=== PATIENT | male | born 1950 | race Caucasian/White ===

== ENCOUNTER → 2017-07-05 08:47 | Outpatient (CLI) | payer OTHER, SELFPAY ==
--- NOTE | 2017-07-05 08:59 | RDU_ITS ---
Reason For Study: HYPERTENSION Right Renal Artery Left Renal Artery Right renal artery ostium Left renal artery ostium 154.0/38.3 148.0/33.7 RSV/EDV. PSV/EDV. Right renal artery proximal Left renal artery proximal PSV/EDV 150.0/34.7 PSV/EDV. 135.0/26.6 . Right renal artery mid 150.0/35.5 Left renal artery mid 162.0/36.5 PSV/EDV. PSV/EDV . Right renal artery distal Left renal artery distal 132.0/31.0 126.0/45.2 PSV/EDV. PSV/EDV. Right Renal Parenchyma Left Renal Parenchyma Upper Pole Medula 25.4/7.3 PSV/EDV. Left upper pole medulla 40.9/12.5 Right upper pole medulla EDR .29 . PSV/EDV . Right upper pole medulla R.I. .71 . Left upper pole medulla EDR .31 . Upper Mike Cortx 41.6/11.3 PSV/EDV. Left upper pole medulla R.I. .69 . Right upper pole cortex EDR .27 . UP Cortex 22.6/7.0 PSV/EDV. Right upper pole cortex R.I. .73 . Left upper pole cortex EDR .31 . Right lower Pole medulla 25.7/7.3 Left upper pole cortex R.I. .69 . PSV/EDV . Left lower Pole medulla 36.7/13.1 Right lower pole medulla EDR .28 . PSV/EDV . Right lower pole medulla R.I. .71 . Left lower pole medulla EDR .36 . Lower Pole Cortex 30.3/8.9 PSV/EDV. Left lower pole medulla R.I. .64 . Right lower pole cortex EDR .29 . Lower Pole Cortx 28.1/8.3 PSV/EDV. Right lower pole cortex R.I. .71 . Left lower pole cortex EDR .30 . Right Renal Hilar Left lower pole cortex R.I. .71 . Right Hilar avg 57.1/16.8 PSV/EDV. Left Renal Hilar Right hilar acceleration time 51 LT Hilar avg 53.2/13.1 PSV/EDV . m/sec. Left hilar acceleration time 59 Right Renal Dimensions m/sec. Right kidney size 10.1 cm . Left Renal Dimensions Right cortical dimension 1.5 cm . Left kidney size 10.8 cm . Left cortical dimension 1.6 cm . Aorta Proximal abdominal aorta 1.6 X 1.6 cm . Distal abdominal aorta 1.5 X 1.5 cm . Proximal abdominal aorta peak systolic velocity is 176.0 cm/sec . Distal abdominal aorta peak systolic velocity is 174.0 cm/sec . Interpretation Summary Dimensions of the intra-abdominal aorta appear normal, without evidence of aneurysmal dilatation. Renal artery velocities are bilaterally normal. Acceleration times are normal bilaterally. There is no evidence of hemodynamically significant renal artery stenosis on either side. The right cortical dimension is normal. The left cortical dimension is increased. Kidneys appear normal in size bilaterally. Ordering Physician: Annabel Adan Performed By: Cait Mckinney RVT
--- NOTE | 2017-07-05 09:00 | ECHOCS_ITS ---
Reason For Study: Dizziness Procedure This was a 2D Doppler, Color Flow transthoracic echocardiogram. The study was technically difficult. Exam performed in department. Left Ventricle Normal size and thickness. The estimated ejection fraction is 65 %. Normal diastology for age. No regional wall motion abnormalities noted. Right Ventricle Normal size and thickness. Normal systolic function. Atria Normal left atrium. Normal right atrium. Normal atrial septum. Mitral Valve The mitral valve is structurally normal. No prolapse or stenosis seen. Tricuspid Valve Normal tricuspid valve. Trivial tricuspid valve insufficiency. Right ventricular systolic pressure estimated to be 33 mmHg. Aortic Valve Trisinus/trileaflet aortic valve. Pulmonic Valve Normal pulmonic valve. Great Vessels Normal aortic root. Normal arch. Normal inferior vena cava. Inferior vena cava collapse with sniff. Pericardium/Pleural No pericardial effusion. Medication Definity0.6ml given slow IV push to enhance endocardial definition. MMode/2D Measurements & Calculations LVIDd: 4.4 cm IVSd: 0.95 cm Ao root diam: 3.2 cm LVIDs: 3.0 cm LVPWd: 0.78 cm LA dimension: 4.5 cm RVDd: 4.1 cm FS: 31.0 % LAV(MOD-bp): 57.9 ml LA A4 area: 17.5 cm2 RA A4 area: 15.2 cm2 LAV(MOD-bp) Indexed: 26.4 ml/m2 LAV(MOD-sp2): 80.3 ml LAV(MOD-sp4): 41.4 ml Doppler Measurements & Calculations MV E max antonio: 78.1 cm/sec Lat Peak E' Antonio: 8.8 cm/sec Med Peak E' Antonio: 8.8 cm/sec MV A max antonio: 89.7 cm/sec E/E' lat: 8.8 E/E' med: 8.9 MV E/A: 0.87 Ao V2 max: 137.2 cm/sec LV V1 max: 126.8 cm/sec PA V2 max: 104.7 cm/sec Ao max P.5 mmHg LV V1 max P.4 mmHg Ao V2 mean: 90.5 cm/sec Ao mean P.7 mmHg Ao V2 VTI: 30.5 cm TR max antonio: 263.6 cm/sec TR max P.8 mmHg Interpretation Summary The estimated ejection fraction is 65 %. Normal diastology for age. Trivial tricuspid valve insufficiency. Right ventricular systolic pressure estimated to be 33 mmHg. There is no comparison study available. The study was technically difficult. Contrast injection was performed. Ordering Physician: Annabel Adan Referring Physician: Annabel Adan Performed By: Lois Valencia, BRYANT, RVT
== END ==
PROVIDERS: Family Provider Internal Medicine; PCP Internal Medicine; Visit Provider Internal Medicine
DX: R42 Dizziness and giddiness (principal); I10 Essential (primary) hypertension
CPT/HCPCS: 93306; 93975; Q9957; A4216; C8929

== ENCOUNTER → 2017-09-15 11:46 | Outpatient (CLI) | payer OTHER, SELFPAY ==
--- NOTE | 2017-09-15 11:51 | RAD_ITS ---
STUDY: X-RAY - RIGHT KNEE REASON FOR EXAM: Male, 67 years old. Knee pain. TECHNIQUE: 4 view(s) of the knee. COMPARISON: None. FINDINGS: Normal visualized distal femur. Normal visualized proximal tibia and fibula. Normal proximal tibiofibular articulation. There is severe degenerative arthrosis of the medial femorotibial compartment with severe joint space narrowing. There is severe degenerative arthrosis of the lateral femorotibial compartment with severe joint space narrowing. There is severe degenerative arthrosis of the patellofemoral articulation. There are atherosclerotic calcifications. RAD/Knee 4 or More Views IMPRESSION: Degenerative arthrosis. Electronically Signed: Oziel Murray MD at 12:14 EDT Tel [phone], Service support ,
== END ==
PROVIDERS: Family Provider Internal Medicine; PCP Internal Medicine; Visit Provider Internal Medicine
DX: M25.561 Pain in right knee (principal)
CPT/HCPCS: 73564

== ENCOUNTER 2017-11-06 20:56 | Emergency (ER) | payer OTHER, SELFPAY ==
[2017-11-06 20:57] VITALS: BP 128/72; PULSE 80; RESP 16; TEMP 36.9; O2SAT 97; BMI 31.5
[2017-11-06 22:42] LABS: Bacteria 0 SEEN /hpf (None Seen); Mucous, Urine 0 SEEN /hpf (<or=2+); Squamous Epithelial Cells - UA 0 SEEN /hpf (0-5)
--- NOTE | 2017-11-06 22:42 | ED.RN ---
ATTEMPTED TO PLACE IV IN LEFT AC WITHOUT SUCCESS. DR. RASMUSSEN AWARE AND STATES IT IS OKAY FOR PT NOT TO HAVE IV AT THIS TIME.
[2017-11-06 22:51] LABS: Absolute Lymphocyte Count 2.18 X10^3/ul (0.83-4.51); Absolute Neutrophil Count 7.8 X10^3/uL (2.0-7.7); Basophil# 0.02 X10^3/uL; Basophil% 0.2 % (0-1); Eosinophil# 0.08 X10^3/uL; Eosinophils% 0.7 % (0-5); Hematocrit 40.2 % (40-54); Lymphocyte # 2.18 X10^3/ul (4.0); Lymphocyte % 19.4 % (19-41); Mean Corp Hgb Conc 32.3 g/gl (32-36); Mean Corpuscular Hgb 32.1 pg (27.0-32.0); Mean Corpuscular Volume 99.3 fL (80-94); Mean Platelet Vol. 9.2 fl (6.2-12.0); Monocyte# 1.19 X10^3/uL; Monocyte% 10.6 % (0-10); Neutrophil # 7.75 X10^3/uL (2.7-7.7); Neutrophil % 68.8 % (47-70); POSITIVE COUNT NO; POSITIVE DIFFERENTIAL NO; POSITIVE MORPHOLOGY NO; Platelet Count 289 K/mm3 (150-450); RBC Distribution Width CV 12.5 % (11.6-14.6); RBC Distribution Width SD 45.4 fl (35.1-43.9); Red Blood Count 4.05 M/mm3 (4.6-6.2); White Blood Count 11.3 K/mm3 (4.4-11.0)
[2017-11-06 22:52] LABS: Color, Urine Yellow (Yellow); Glucose, Dipstick Normal (Normal); Ketone-Dipstick 5 mg/dl (Negative); Leukocyte Esterase-Dipstick 500 /ul (Negative); Nitrite-Dipstick Negative (Negative); Occult Blood-Urine 250 /ul (Negative); Protein-Dipstick 30 mg/dl (Negative); Specific Gravity, Urine 1.025 (1.002-1.030); Urine Bilirubin Dipstick Negative (Negative); Urine Clarity Cloudy (Clear); Urine Urobilinogen 1 mg/dl (Normal)
[2017-11-06 23:00] VITALS: RESP 16
[2017-11-06 23:05] LABS: Anion Gap 8 (5-15); BUN 18 mg/dL (7-18); BUN/Creat Ratio 17.3 RATIO (10-20); Chloride 106 mmol/L (98-107); Creatinine, Serum 1.04 mg/dL (0.70-1.30); EST Glomerular Filtration Rate 76 mL/min (>60); Est Glom Filt Rate - Afr Amer 92 mL/min (>60); Estimated Creatinine Clearance 73.12 ml/min; Glucose 112 mg/dL (74-106); Potassium 4.3 mmol/L (3.5-5.1); Sodium Level 140 mmol/L (136-145)
[2017-11-06 23:07] LABS: Amorphous Sediment 2+; Calcium Oxalate Crystals Ur RARE /hpf (<or=2+); Red Blood Cells-Urine 25-50 SEEN /hpf (0-5); White Blood Cells 10-25 SEEN /hpf (0-5)
--- NOTE | 2017-11-06 23:44 | ED.VISSUMM ---
- ER Visit Summary Date of Service: 11/06/17 Chief Complaint: Not passing kidney stones History of Present Illness: The patient is a 67 M who had lithotripsy for 2 stones in his right kidney on November 01. He states the stones were approximately 8 mm in size. Surgery was performed at [facility], [place]. Patient states he did well until the when he had developed increased pain. He has been taking his oxycodone since that time. He is now complaining of constipation as well. Patient states he has not passed any kidney stones. Last 2 or 3 times he is urinated it has been dark in color. Physical Examination: Vital signs are unremarkable. Patient sitting upright in bed no acute distress. Heart is regular rate and rhythm. Lung sounds are clear. Abdomen is soft with no focal tenderness. Hypoactive bowel sounds are noted. Test Results: CBC was a white count 11.3 with normal differential. Chemistry studies normal. Urinalysis shows 10-25 white cells, 25-50 RBCs. No bacteria is noted. Small amount of calcium oxalate crystals are noted. CT flank reveals mild right perinephric and periureteral stranding. Mild right hydronephrosis is noted. There is a 6 mm stone in the distal right ureter. There is also a 6 mm stone in the bladder. Many small tiny stones are seen in the region of the right UVJ. Emergency Department Course and Treatment: Patient did take his home dose of Percocet while here. Test results were discussed with him and at bedside. Patient will be given Toradol to help with ureteral spasm and pain. To address his constipation he will be treated with GoLYTELY. He is to follow-up with his urologist at [facility] [place]. Treatment Plan: [] Disposition: Discharge Impression: 1. Right-sided ureterolithiasis 2. Constipation This note was generated with [employer] dictation software. It may contain incorrect words, spelling, and punctuation that were not noted in review of the chart prior to signing ED Disposition - Plan for ED Patient: Disposition: Home or Assisted Living Chief Complaint: Complaint Instructions: ED Stone Renal W Colic Prescriptions: Ketorolac [Toradol] 10 mg PO Q6H PRN #14 tablet PRN Reason: Pain Referrals: Fast,Annabel, DO [Primary Care Provider] - Additional Instructions: Take GoLytely after completing your sleep study tomorrow. Follow-up with your urologist within 5-7 days.
--- NOTE | 2017-11-06 23:48 | ED.DEP ---
ED Disposition - Plan for ED Patient: Disposition: Home or Assisted Living Chief Complaint: Complaint Instructions: ED Stone Renal W Colic Prescriptions: Ketorolac [Toradol] 10 mg PO Q6H PRN #14 tablet PRN Reason: Pain Referrals: Loco,DO Annabel [Primary Care Provider] - Additional Instructions: Take GoLytely after completing your sleep study tomorrow. Follow-up with your urologist within 5-7 days.
[2017-11-07] MEDS: Ketorolac 10 MG Tablet PO ×2 (00:05→00:06)
[2017-11-07] MEDS: Electrolyte Solution/Peg's 4000 ML PO (00:06)
[2017-11-07 00:07] VITALS: BP 147/92; PULSE 85; RESP 16; O2SAT 98
--- NOTE | 2017-11-07 00:14 | ED.RN ---
REVIEWED D/C INSTRUCTIONS, FOLLOW UP CARE, PRESCRIPTION, AND S/S THAT WOULD WARRANT A RETURN TO THE ED WITH PT. PT VERBALIZED AN UNDERSTANDING AND DENIES FURTHER QUESTIONS FOR THIS RN. PT SKIN P/W/D, RESP EVEN AND UNLABORED, PT A&O X 3, NO DISTRESS NOTED. PT AMBULATED OUT OF ED, GAIT STEADY.
== END 2017-11-07 00:15 | disposition home or self-care (01) ==
PROVIDERS: Emergency Provider Emergency Medicine; Family Provider Internal Medicine; PCP Internal Medicine
DX: N13.2 Hydronephrosis with renal and ureteral calculous obstruction (principal); K59.00 Constipation, unspecified; I10 Essential (primary) hypertension; E78.00 Pure hypercholesterolemia, unspecified; F41.9 Anxiety disorder, unspecified; F32.9 Major depressive disorder, single episode, unspecified; Z87.442 Personal history of urinary calculi; Z98.1 Arthrodesis status; Z79.82 Long term (current) use of aspirin; Z79.899 Other long term (current) drug therapy; Z87.891 Personal history of nicotine dependence
CPT/HCPCS: 74176; 80048; 81001; 85025; 99283; A4216

== ENCOUNTER → 2017-11-22 10:05 | Outpatient (CLI) | payer OTHER, SELFPAY ==
--- NOTE | 2017-11-22 13:08 | NEURO ---
NCS and/or EMG Patient Report Ordering Doctor: Annabel Adan DATE OF SERVICE: 11/22/17 Kamar Chu is a 67-year-old male presents for electrodiagnostic testing of the right lower limb. He reports weakness, muscle cramping and pain from the knee to the foot. He does have a history of lumbar fusion. He does report intermittent symptoms in the left leg. Electrodiagnostic findings: Right common peroneal nerve demonstrates normal distal latency with reduced amplitude and normal conduction velocity. Normal right tibial motor response. Sensory responses are within normal limits. Needle EMG testing shows no evidence of denervation with normal motor unit action potentials. Electrodiagnostic impression: This is an abnormal study in the right lower limb. 1. 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 2. Would consider correlation with the left lower limb to evaluate for polyneuropathy. Additionally, Mr. Chu may also benefit from a tissue biopsy to evaluate for small fiber neuropathy. If there are any further questions, please, do not hesitate to contact me
== END ==
PROVIDERS: Family Provider Internal Medicine; PCP Internal Medicine; Visit Provider Internal Medicine
DX: R29.898 Other symptoms and signs involving the musculoskeletal system (principal)
CPT/HCPCS: 95886; 95910

== ENCOUNTER → 2018-03-05 10:08 | Outpatient (CLI) | payer OTHER, SELFPAY ==
--- NOTE | 2018-03-05 10:12 | MRI_ITS ---
STUDY: MRI BRAIN WITH AND WITHOUT CONTRAST (ATTENTION INTERNAL AUDITORY CANALS - I.A.C.'s) REASON FOR EXAM: Male, 67 years old. TINNITUS RIGHT EAR -- dizzy, rt hearing loss, no pain. TECHNIQUE: Standardized multiplanar fat and water weighted pulse sequences were obtained. 7 ml of Gadavist contrast material was administered intravenously for the contrast portion of the examination. COMPARISON: None. FINDINGS: Normal bilateral temporal bones. Normal bilateral internal auditory canals. There is no demonstrated intracanalicular or cisternal vestibular schwannoma (acoustic neuroma). There is no enhancement of the bilateral VIIth or VIIIth cranial nerves. Normal bilateral cochlea, vestibules and semicircular canals. There is mild cerebral atrophy with widening of the extra-axial spaces and ventricular dilatation. There are a limited number of small white matter hyperintensities, distributed throughout the deep white matter tracts of the cerebral hemispheres, consistent with mild chronic white matter ischemic changes. Normal bilateral basal ganglia. Normal thalami. Normal flow voids within the major intracranial circulation suggesting patency by spin echo criteria. Normal venous enhancement. There is no enhancing intra-axial or extra-axial abnormality. There is no extra-axial fluid accumulation. Normal sella turcica, pituitary gland, infundibular stalk, optic chiasm and hypothalamus. Normal tectal plate and pineal gland. Normal midbrain, juan a and medulla. Normal cerebellum. Normal basal cisterns. No demonstrated orbital abnormality, within the constraints of a routine brain study. Normal visualized paranasal sinuses. Normal calvarium and skull base. Normal visualized soft tissue structures. Normal visualized upper cervical spine. MRI/Brain W/WO Contrast IMPRESSION: There is no demonstrated intracanalicular or cisternal vestibular schwannoma (acoustic neuroma). Mild chronic microvascular ischemic changes. Electronically Signed: Ruddy Everett MD at 9:18 EST Tel , Service support ,
[2018-03-05 12:06] LABS: CREATININE FINGERSTICK 0.7 mg/dL (0.70-1.30); EGFR FINGERSTICK > 60.0000 mL/min (>60)
== END ==
PROVIDERS: Family Provider Internal Medicine; PCP Internal Medicine; Referring Provider Otolaryngology; Visit Provider Otolaryngology
DX: H93.11 Tinnitus, right ear (principal)
CPT/HCPCS: 70553; A9585

== ENCOUNTER 2018-04-23 05:46 | Inpatient (IN) | payer OTHER, MEDICARE, SELFPAY ==
[2018-04-10 15:39] VITALS: BP 141/80; PULSE 61; RESP 16; TEMP 36.8; O2SAT 99; BMI 32.8
--- NOTE | 2018-04-10 16:19 | SDCEKG_ITS ---
Test Reason : Blood Pressure : / mmHG Vent. Rate : 057 BPM Atrial Rate : 057 BPM P-R Int : 186 ms QRS Dur : 100 ms QT Int : 428 ms P-R-T Axes : 051 067 050 degrees QTc Int : 416 ms Sinus bradycardia Otherwise normal ECG Confirmed by CHARITY GATICA, NESTOR ([id number]), film editor supervisor DARRYN GALLARDO ([id number]) on 04/13/2018 3:30:47 PM Referred By: Saleem Rider Confirmed By:NESTOR NAHS MD
[2018-04-10 16:59] LABS: Absolute Lymphocyte Count 1.98 X10^3/ul (0.83-4.51); Basophil# 0.01 X10^3/uL; Basophil% 0.2 % (0-1); Eosinophil# 0.17 X10^3/uL; Hematocrit 39.6 % (40-54); Hemoglobin 12.9 g/dl (13.0-16.5); Lymphocyte # 1.98 X10^3/ul (4.0); Mean Corp Hgb Conc 32.6 g/gl (32-36); Mean Corpuscular Hgb 31.6 pg (27.0-32.0); Mean Corpuscular Volume 97.1 fL (80-94); Mean Platelet Vol. 9.1 fl (6.2-12.0); Monocyte# 0.46 X10^3/uL; Monocyte% 8.1 % (0-10); Neutrophil # 3.02 X10^3/uL (2.7-7.7); Neutrophil % 53.5 % (47-70); POSITIVE COUNT NO; POSITIVE DIFFERENTIAL NO; POSITIVE MORPHOLOGY NO; Platelet Count 267 K/mm3 (150-450); RBC Distribution Width CV 12.1 % (11.6-14.6); RBC Distribution Width SD 42.8 fl (35.1-43.9); Red Blood Count 4.08 M/mm3 (4.6-6.2); White Blood Count 5.7 K/mm3 (4.4-11.0)
[2018-04-10 17:27] LABS: ALB/GLOB Ratio 1.1 RATIO (0.9-2.4); AST(SGOT) 17 U/L (15-37); Alanine Aminotransfer ALT/SGPT 27 U/L (16-61); Alkaline Phosphatase 90 U/L (45-117); Anion Gap 6 (5-15); BUN 21 mg/dL (7-18); BUN/Creat Ratio 25.5 RATIO (10-20); Calcium,Total 8.9 mg/dL (8.5-10.1); Chloride 106 mmol/L (98-107); Creatinine, Serum 0.82 mg/dL (0.70-1.30); EST Glomerular Filtration Rate 99 mL/min (>60); Est Glom Filt Rate - Afr Amer 120 mL/min (>60); Estimated Creatinine Clearance 89.81 ml/min; Globulin 3.8 g/dL (2.2-4.2); Glucose 83 mg/dL (74-106); Potassium 4.1 mmol/L (3.5-5.1); Protein, Total 7.8 g/dL (6.4-8.2); Sodium Level 138 mmol/L (136-145)
[2018-04-23] VITALS (11 sets, daily range): BP systolic 108–152; BP diastolic 60–77; PULSE 58–90; RESP 16–18; TEMP 36.1–36.8; O2SAT 94–100; BMI 32.8
--- NOTE | 2018-04-23 | HIP_PTH ---
PATIENT: LEWIS VEGA LOC: MS3 U#:[id number] AGE/SX: 67/M ROOM: MS308 RE04/23/[address]: Dr. Saleem Rider DO : 1950 BED: 1 DIS: 04/24/2018 SPEC #: [id number] RECD: 04/23/18 13:36 STATUS: PATRIC REQ #: [id number] MODESTA: 04/23/18 00:[address]: Saleem Rider DEPT: SURGICAL PATHOLOGY RECD BY: Luis Walden ENTERED: 04/23/18 13:37 SP TYPE: TOTAL HIP OTHR DR: Dr. Annabel Adan DO Tissues: Hip, NOS Procedures: Decalcification bone/plaque Surgery Specimen Level IV HEADER OPERATION: Total hip replacement PRE-OP DIAGNOSIS: Severe endstage tricompartment osteoarthritis left hip TISSUE SUBMITTED: Bone and soft tissue MICROSCOPIC DIAGNOSIS Bone and tissue, left hip, total hip replacement/resection: Femoral head with degenerative osteoarthritic changes. Fragments of fibroadipose tissue, fibroconnective tissue and synovial tissue. RORO:petty 04/26/18 MICROSCOPIC DESCRIPTION Slides are reviewed. GROSS DESCRIPTION Received is one container labeled with the patient's name and designated bone and soft tissue hip, left. The specimen consists of a lara femoral head. The femoral head measures 7 x 5.5 x 5.5 cm. The articular surface displays prominent osteophyte formation, eburnation and bone erosion. Also present in the specimen container are multiple irregular fragments of bone reamings and pink-yellow soft tissue measuring in aggregate 11 x 8 x 1 cm. Cnc Field Service Engineer sections are submitted in two cassettes as follows: 1 - soft tissue, 2 - bone after decalcification. / AM:petty 04/23/18 TC:5 [facility]: [id number]
[2018-04-23] MEDS: oxyCODONE HCl Cr 10 MG Tablet PO (06:24)
[2018-04-23] MEDS: Acetaminophen 500 MG Tablet 1000 MG PO ×3 (06:24→21:42)
[2018-04-23] MEDS: Cefazolin 2 GM in 0.9% Normal Saline 100 ML IV (07:26)
--- NOTE | 2018-04-23 09:38 | PCM.OPRPT ---
Report of Operation Date of Procedure: 04/23/18 Pre-Operative Diagnosis: OA left hip Post-Operative Diagnosis: same Surgery/Procedure Performed:: Left THR Description of Surgical Findings:: see op note house calls nurse practitioner: Akshat Mabry Type of Anesthesia:: Spinal Anesthesiologist: Osiel Santos Specimen's removed: bone Estimated Blood Loss (mL): 100c - Admit VTE Documentation VTE Present on Admission: No VTE Mechan Device Prophylaxis: SCD's, Thigh High RAEGAN Hose VTE Pharm Prophylaxis ordered?: Yes
--- NOTE | 2018-04-23 09:53 | RAD_ITS ---
STUDY: X-RAY - LEFT HIP REASON FOR EXAM: Male, 67 years old. Total left hip replacement. TECHNIQUE: 2 views of the hip. COMPARISON: None. FINDINGS: Postoperative soft tissue changes. The patient is status post left total hip replacement. There is good alignment. RAD/Hip Min 2 Views (Portable) IMPRESSION: Status post left total hip replacement. There is good alignment. Postoperative soft tissue changes. Electronically Signed: Oziel Murray MD at 13:01 EST , Service support ,
[2018-04-23 10:01] LABS: Hematocrit 36.2 % (40-54); Hemoglobin 11.7 g/dl (13.0-16.5); Mean Corp Hgb Conc 32.3 g/gl (32-36); Mean Corpuscular Hgb 32.3 pg (27.0-32.0); Mean Platelet Vol. 9.2 fl (6.2-12.0); Platelet Count 245 K/mm3 (150-450); Red Blood Count 3.62 M/mm3 (4.6-6.2); White Blood Count 5.8 K/mm3 (4.4-11.0)
[2018-04-23 10:02] LABS: Scan Indicated on CBC? Y/N NO
[2018-04-23 10:10] LABS: Anion Gap 10 (5-15); BUN 23 mg/dL (7-18); BUN/Creat Ratio 23.8 RATIO (10-20); Calcium,Total 8.4 mg/dL (8.5-10.1); Chloride 108 mmol/L (98-107); Creatinine, Serum 0.97 mg/dL (0.70-1.30); EST Glomerular Filtration Rate 83 mL/min (>60); Est Glom Filt Rate - Afr Amer 100 mL/min (>60); Estimated Creatinine Clearance 75.92 ml/min; Glucose 154 mg/dL (74-106); Potassium 3.6 mmol/L (3.5-5.1); Sodium Level 143 mmol/L (136-145)
--- NOTE | 2018-04-23 10:53 | PCM.OPRPT ---
Report of Operation Date of Procedure: 04/23/18 Pre-Operative Diagnosis: OA left hip Post-Operative Diagnosis: same Surgery/Procedure Performed:: Left THR Description of Surgical Findings:: see op note surveillance manager: Akshat Mabry Type of Anesthesia:: Spinal Anesthesiologist: Osiel Santos Specimen's removed: bone Estimated Blood Loss (mL): 100c Description of Procedure: Primary Surgeon/Physician: Saleem Rider surveillance manager: Akshat Mabry PA-C surveillance manager: Pre-Operative Diagnosis: OA left hip Post-Operative Diagnosis: same Surgery/Procedure Performed: Left THR Estimated Blood Loss: 100cc Specimen's Removed: bone Type of Anesthesia: spinal ASA Class: ASA3 Severe Disease Implants: [Wili Accolade 132 degree size 6 pressfit stem, size 58mm Trident tritanium cup, MDM metal liner, +4 femoral neck ] Surgical Indications: Patient has severe end-stage osteoarthritic changes in the [left ] hip. They have failed conservative measures including activity modification, anti-inflammatories, use of assistive devices. This to the point where the pain affects their ability to enjoy life and complete activities of daily living without discomfort. Patient has elected to undergo the above procedure Procedure Description: The patient was greeted in the preoperative area the [left ] hip was marked with surgical marker preoperative antibiotics administered. The patient was then taken to or suite in stable condition. Preoperative tranexamic acid was also utilized. Once the patient was placed in the supine position on the operating room table and once adequate anesthesia was obtained they were then placed in the lateral decubitus position with the surgical hip facing the field. All bony prominences were well-padded. A commercial hip position was utilized. The appropriate extremity was then prepped and draped in usual sterile fashion. Ioban was placed on the skin. Surgical timeout was performed and surgery was commenced. A standard posterior approach to the hip was then performed. Incision was planned and carried out with a #10 blade scalpel. Dissection was then carried length of the incision to the IT band which was split proximally and distally. A Charnley retractor was then placed for soft tissue retraction exposing the piriformis. A standard posterior capsulotomy was performed. Severe eburnation of bone was noted and periarticular osteophytes were identified consistent with severe end-stage osteoarthritis. A femoral neck osteotomy guide was used to milton the proximal femur. A femoral osteotomy was then created approximately 1 fingerbreadth above the lesser trochanter. This was measured and placed on the back table. Once this was complete acetabular retractors were placed anteriorly and posteriorly. Labrum was then removed from the acetabulum exposing the entire cup of the acetabulum. Sequential reaming was then commenced and the acetabulum was medialized and sequentially widened in order to accommodate appropriate size cup. The acetabular cup was then impacted into position to the appropriate depth referencing approximately 30? anteversion and 45? of inclination. Excellent purchase was obtained. [2] appropriate sized cancellous screws were placed in the cup. An appropriate size MDM liner was then placed. Attention was then turned to the femoral preparation. The hip was placed in the 90/90 position and a lateralizing box osteotome was utilized. Femoral starting awl was used followed by sequential broaching to the appropriate size. Excellent purchase was obtained with the stem no stem subsidence and excellent rotational stability was confirmed. A calcar reamer was then used in the trial head neck was placed on the broach. The hip was then located and taken through full range of motion flexion internal and external rotation as well as extension. Excellent stability was noted no impingement was identified of the components and leg lengths appear to be appropriate. The hip was at this point dislocated and the trial femoral components were removed. The final femoral stem was then implanted and impacted to the appropriate depth. Again excellent purchase was obtained no stem subsidence or rotational instability was noted. The hip was once again trialed and confirmation of leg length and stability was performed. Soft tissue tension also appeared to be appropriate. At this point the hip was redislocated and the trunnion was cleaned and dried meticulously in the appropriate size MDM femoral head was placed on the clean dry trunnion using a 12/14 Atkinson taper. The hip was once again relocated and again taken through full range of motion. I did inject a cocktail of postoperative pain medication in the deep and superficial tissues. Copious irrigation was performed. Anatomic closure of the piriformis tendon was performed through drill holes in the greater trochanter. A #1 Vicryl 0 Vicryl was utilized in subcutaneous tissue and surgical qasim were placed in the skin. A well-padded nonadherent dressing was applied. Patient was taken to PACU in stable condition. No complications were identified. Will follow standard postop protocol for total hip arthroplasty. My assistant strength coach played a vital role in the procedure beginning with positioning, holding retraction of soft tissues, positioning the leg to optimize visualization during the procedure and assisting with wound closure.
--- NOTE | 2018-04-23 10:57 | OP.PCM_ITS ---
Report of Operation Date of Procedure: 04/23/18 Pre-Operative Diagnosis: OA left hip Post-Operative Diagnosis: same Surgery/Procedure Performed:: Left THR Description of Surgical Findings:: see op note web marketing strategist: Akshat Mabry Type of Anesthesia:: Spinal Anesthesiologist: Osiel Santos Specimen's removed: bone Estimated Blood Loss (mL): 100c Description of Procedure: Primary Surgeon/Physician: Saleem Rider web marketing strategist: Akshat Mabry PA-C web marketing strategist: Pre-Operative Diagnosis: OA left hip Post-Operative Diagnosis: same Surgery/Procedure Performed: Left THR Estimated Blood Loss: 100cc Specimen's Removed: bone Type of Anesthesia: spinal ASA Class: ASA3 Severe Disease Implants: [Wili Accolade 132 degree size 6 pressfit stem, size 58mm Trident tritanium cup, MDM metal liner, +4 femoral neck ] Surgical Indications: Patient has severe end-stage osteoarthritic changes in the [left ] hip. They have failed conservative measures including activity mod ification, anti-inflammatories, use of assistive devices. This to the point where the pain affects their ability to enjoy life and complete activities of daily living without discomfort. Patient has elected to undergo the above procedure Procedure Description: The patient was greeted in the preoperative area the [left ] hip was marked with surgical marker preoperative antibiotics administered. The patient was then taken to or suite in stable condition. Preoperative tranexamic acid was also utilized. Once the patient was placed in the supine position on the operating room table and once adequate anesthesia was obtained they were then placed in the lateral decubitus position with the surgical hip facing the field. All bony prominences were well-padded. A comm ercial hip position was utilized. The appropriate extremity was then prepped and draped in usual sterile fashion. Ioban was placed on the skin. Surgical timeout was performed and surgery was commenced. A standard posterior approach to the hip was then performed. Incision was planned and carried out with a #10 blade scalpel. Dissection was then carried length of the incision to the IT band which was split proximally and distally. A Charnley retractor was then placed for soft tissue retraction exposing the piriformis. A standard posterior capsulotomy was performed. Severe eburnation of bone was noted and periarticular osteophytes were identified consistent with severe end-stage osteoarthritis. A femoral neck osteotomy guide was used to milton the proximal femur. A femoral osteotomy was then created approximately 1 fingerbreadth above the lesser trochanter. This was measured and placed on the back table. Once this was complete acetabular retractors were placed anteriorly and posteriorly. Labrum was then removed from the acetabulum exposing the entire cup of the acetabulum. Sequential reaming was then commenced and the acetabulum was medialized and sequentially widened in order to accommodate appropriate size cup. The acetabular cup was then impacted into position to the appropriate depth referencing approximately 30? anteversion and 45? of inclination. Excellent purchase was obtained. [2] appropriate sized cancellous screws were placed in the cup. An appropriate size MDM liner was then placed. Attention was then turned to the femoral preparation. The hip was placed in the 90/90 position and a lateralizing box osteotome was utilized. Femoral starting awl was used followed by sequential broaching to the appropriate size. Excellent purchase was obtained with the stem no stem subsidence and excellent rotational stability was confirmed. A calcar reamer was then used in the trial head neck was placed on the broach. The hip was then located and taken through full range of motion flexion internal and external rotation as well as extension. Excellent stability was noted no impingement was identified of the components and leg lengths appear to be appropriate. The hip was at this point dislocated and the trial femoral components were removed. The final femoral stem was then implanted and impacted to the appropriate depth. Again excellent purchase was obtained no stem subsidence or rotational instability was noted. The hip was once again trialed and confirmation of leg length and stability was performed. Soft tissue tension also appeared to be appropriate. At this point the hip was redislocated and the trunnion was cleaned and dried meticulously in the appropriate size MDM femoral head was placed on the clean dry trunnion using a 12/14 Atkinson taper. The hip was once again relocated and again taken through full range of motion. I did inject a cocktail of postoperative pain medication in the deep and superficial tissues. Copious irrigation was performed. Anatomic closure of the piriformis tendon was performed through drill holes in the greater trochanter. A #1 Vicryl 0 Vicryl was utilized in subcutaneous tissue and surgical qasim were placed in the skin. A well-padded nonadherent dressing was applied. Patient was taken to PACU in stable condition. No complications were identified. Will follow standard postop protocol for total hip arthroplasty. My financial services assistant played a vital role in the procedure beginning with positioning, holding retraction of soft tissues, positioning the leg to optimize visualization during the procedure and assisting with wound closure.
[2018-04-23] MEDS: Sertraline 50 MG Tablet PO ×2 (14:09→21:42)
[2018-04-23] MEDS: Lactated Ringers 1,000 ML 125 ML IV ×2 (14:09→22:36)
[2018-04-23] MEDS: Cefazolin 1 GM/50 ML BAG IV ×2 (15:08→22:35)
[2018-04-23] MEDS: Aspirin 325 MG Tablet PO (16:28)
[2018-04-23] MEDS: Tamsulosin HCl 0.4 MG Capsule PO (21:41)
[2018-04-23] MEDS: Metoprolol(XL)Succ 25 MG Tablet PO (21:41)
[2018-04-23] MEDS: Senna/Docusate Sodium 1 Tablet 2 TABLET PO (21:41)
[2018-04-23] MEDS: Atorvastatin Calcium 40 MG Tablet PO (21:42)
[2018-04-23] MEDS: Ketorolac 15 MG/ML Vial IV (22:36)
[2018-04-24 02:33] VITALS: BP 116/66; PULSE 58; RESP 16; TEMP 36.9; O2SAT 96
[2018-04-24] MEDS: Acetaminophen 500 MG Tablet 1000 MG PO ×2 (05:18→14:39)
[2018-04-24] MEDS: Sertraline 50 MG Tablet PO ×2 (05:20→14:39)
[2018-04-24 06:19] LABS: Hematocrit 35.3 % (40-54); Hemoglobin 11.2 g/dl (13.0-16.5); Mean Corp Hgb Conc 31.7 g/gl (32-36); Mean Corpuscular Hgb 32.4 pg (27.0-32.0); Mean Platelet Vol. 9.2 fl (6.2-12.0); Platelet Count 206 K/mm3 (150-450); RBC Distribution Width CV 12.5 % (11.6-14.6); RBC Distribution Width SD 45.9 fl (35.1-43.9); Red Blood Count 3.46 M/mm3 (4.6-6.2); Scan Indicated on CBC? Y/N NO; White Blood Count 7.7 K/mm3 (4.4-11.0)
[2018-04-24 06:40] LABS: Anion Gap 8 (5-15); BUN 16 mg/dL (7-18); BUN/Creat Ratio 19.3 RATIO (10-20); Calcium,Total 8.4 mg/dL (8.5-10.1); Chloride 107 mmol/L (98-107); Creatinine, Serum 0.83 mg/dL (0.70-1.30); EST Glomerular Filtration Rate 99 mL/min (>60); Est Glom Filt Rate - Afr Amer 119 mL/min (>60); Estimated Creatinine Clearance 88.73 ml/min; Glucose 107 mg/dL (74-106); Potassium 4.5 mmol/L (3.5-5.1); Sodium Level 140 mmol/L (136-145)
[2018-04-24] MEDS: Ketorolac 15 MG/ML Vial IV (07:01)
--- NOTE | 2018-04-24 07:42 | PCM.PN.ORT ---
Subjective: Patient sitting at bedside eating breakfast, at his side. Patient states he was sore this morning with ambulation. Denies chest pain, shortness breath, calf pain, nausea vomiting. Objective: Dressings clean dry intact. Negative signs and symptoms of DVT. Vital signs labs within normal limits. Patient in no respiratory distress. Patient is afebrile neurovascular is otherwise intact. - Physical Exam General: Alert, Oriented x3, Cooperative HEENT: PERRLA Neurological: Cranial nerves II-XII grossly intact Psych/Mental Status: Normal Affect, Alert and oriented to time, place, person, mood and affect Vital Signs Temp Pulse Resp BP Pulse Ox 98.5 F 58 L 16 116/66 96 04/24/18 02:33 04/24/18 02:33 04/24/18 02:33 04/24/18 02:33 04/24/18 02:33 Oxygen Flow Rate (L/min) 2 Oxygen Delivery Method CPAP Weight: 100.698 kg Body Mass Index (BMI) 32.8 Intake and Output for Last 24 Hours 04/22/18 04/23/18 04/24/18 23:59 23:59 23:59 Intake Total 2841 / 2841 1101 / 1101 Output Total 450 / 450 Balance 2391 / 2391 1101 / 1101 Laboratory Tests Past 24 Hrs 04/23/18 04/23/18 04/24/18 09:46 09:46 05:32 WBC 5.8 7.7 RBC 3.62 L 3.46 L Hgb 11.7 L 11.2 L Hct 36.2 L 35.3 L MCV 100.0 H 102.0 H MCH 32.3 H 32.4 H MCHC 32.3 31.7 L RDW 12.0 12.5 RDW Differential 43.0 45.9 H Plt Count 245 206 MPV 9.2 9.2 Sodium 143 Potassium 3.6 Chloride 108 H Carbon Dioxide 25.0 Anion Gap 10 BUN 23 H Creatinine 0.97 Estim Creat Clear Calc 75.92 Est GFR (MDRD) Af Amer 100 Est GFR (MDRD) Non-Af 83 BUN/Creatinine Ratio 23.8 H Glucose 154 H Calcium 8.4 L 04/24/18 05:32 WBC RBC Hgb Hct MCV MCH MCHC RDW RDW Differential Plt Count MPV Sodium 140 Potassium 4.5 Chloride 107 Carbon Dioxide 25.0 Anion Gap 8 BUN 16 Creatinine 0.83 Estim Creat Clear Calc 88.73 Est GFR (MDRD) Af Amer 119 Est GFR (MDRD) Non-Af 99 BUN/Creatinine Ratio 19.3 Glucose 107 H Calcium 8.4 L Medical Necessity - Tobacco Use Smoking Status: Former smoker Assessment/Plan Status post left total hip 1. Continue all pain medications as prescribed 2. Continue physical therapy weight-bear as tolerated with walker. 3. Aspirin 325 mg 1 p.o. every 12 hours times 30 days for postop DVT prophylaxis 4. Encourage incentive spirometry 5. continue outpatient therapy at [facility] [place] 6. Discharge home after today's p.m. therapy
--- NOTE | 2018-04-24 07:53 | DCINST_ITS ---
Discharge Diet: No Restrictions Discharge Activity: May Not Drive, May Shower, Use Walker May shower in (days): 3 - only if incision is dry and without drainage. Do NOT soak/submerge in tub/pool/valdez/stream/hot tub. May resume sexual activity in: No Restrictions Ice area for (Minutes): 20 - every hour while awake Weight Bearing Status: Weight bearing as tolerated Lifting Restrictions: 20 pounds Elevate: Operative Extremity Call your doctor if your incision/area has: Continuous Slow Oozing, Sudden Increased Bleeding, Increased Pain/ Swelling, Increased Redness, Foul Smelling Discharge Call your doctor if you observe: Fever of 101 or Higher, Inability to urinate, Inability to have a bowel movement, Shortness of breath, Fainting spells, Chest pain, Increased palpitations (irregular heartbeat), Calf discomfort, Uncontrolled pain Change Dressing in (Days):: 0 - Change daily and as needed. Remove Dressing in (days):: 8 Cleanse incision/area with: Soap & Water Allergies/Adverse Reactions: Allergies No Known Allergies Allergy (Verified 04/10/18 15:21) Medications to take at Discharge Atorvastatin Calcium [Lipitor] 40 mg PO DAILY 11/06/17 Cholecalciferol (VIT D3) [Vitamin D3] 3,000 unit PO DAILY 11/06/17 Ferrous Sulfate [Iron] 325 mg PO DAILY 11/06/17 Metoprolol(XL)Succ [Toprol Xl (Beta Lissett)] 25 mg PO BID 11/06/17 Multivitamin [Multiple Vitamins] 1 each PO DAILY 11/06/17 Sertraline HCl [Zoloft] 50 mg PO TID 11/06/17 Tamsulosin HCl [Flomax] 0.4 mg PO QHS 11/06/17 Vitamin B Complex 1 each PO DAILY 11/06/17 Amlodipine Besylate/Benazepril [Amlodipine-Benazepril 5-10 mg] 1 each PO DAILY 04/10/18 Acetaminophen [Tylenol] 1,000 mg PO Q8 #90 tab 04/24/18 Aspirin 325 mg PO BIDCM #60 tab 04/24/18 Oxycodone [Oxyir] 5 - 10 mg PO Q4H PRN PRN 7 Days #90 tab 04/24/18 The following prescriptions were given: Oxycodone [Oxyir] 5 - 10 mg PO Q4H PRN PRN 7 Days #90 tab PRN Reason: Mod-Severe Pain (4-12/20) Acetaminophen [Tylenol] 1,000 mg PO Q8 #90 tab Aspirin 325 mg PO BIDCM #60 tab Primary Care Physician: Annabel Adan DO [Primary Care Provider] - Test Results: Test results from this visit will be discussed in further detail at your follow- up appointment, if applicable. Please Follow Up With: Saleem Rider DO When: see pink sheet
[2018-04-24] MEDS: oxyCODONE 5 MG Tablet PO ×2 (08:14→12:06)
[2018-04-24] MEDS: Aspirin 325 MG Tablet PO (08:14)
[2018-04-24 08:16] VITALS: BP 120/57; PULSE 81; RESP 18; TEMP 36.7; O2SAT 97
[2018-04-24] MEDS: Lisinopril 10 MG Tablet PO (09:38)
[2018-04-24] MEDS: Senna/Docusate Sodium 1 Tablet 2 TABLET PO (09:39)
[2018-04-24] MEDS: amLODIPine 5 MG Tablet PO (09:39)
--- NOTE | 2018-04-24 09:40 | CASEMGMT ---
KOURTNEY MORENO Face to Face with patient for initial transition planning/care coordination assessment. RN TIFFANIE introduced self and role at [facility]. Patient lying in bed, alert and oriented, at bedside. Patient willing to participate in assessment and is able to answer all questions appropriately. Care providers, pharmacy, and demographics verified. Patient wishes to discharge home and is setup with [facility] for outpatient therapy with providing transportation. Patient has walker, raised toilet seat, BSC, and Cpap at home. Patient lives in 2 story home with bed and bath on 2nd floor. Patietn states he did the stair okay with therapy and feels fine with doing stairs at home with double railing. Per , if patient needs setup on 1 floor, it could be done. Patient states he has no further needs or concerns at this time. CM to follow for discharge planning needs that may arise. Disposition Plan: Patient to discharge home with outpatient therapy, family support, and follow-up plans in place. Fern CAMARILLO, RN, CM
[2018-04-24 09:46] VITALS: PULSE 64
[2018-04-24] MEDS: Metoprolol(XL)Succ 25 MG Tablet PO (09:46)
[2018-04-24 09:50] VITALS: PULSE 64
[2018-04-24 14:15] VITALS: BP 120/67; PULSE 79; RESP 18; TEMP 37.1; O2SAT 99
== END 2018-04-24 14:44 | disposition home or self-care (01) | DRG 470 ==
PROVIDERS: Admitting Provider Orthopaedic Surgery; Family Provider Internal Medicine; PCP Internal Medicine; Referring Provider Orthopaedic Surgery; Visit Provider Orthopaedic Surgery
PROC: 0SRB0JZ Replacement of Left Hip Joint with Synthetic Substitute, Open Approach (ICD-10-PCS; CPT 27130; principal; 2018-04-23 06:50)
DX: M16.12 Unilateral primary osteoarthritis, left hip (principal); I10 Essential (primary) hypertension; E78.00 Pure hypercholesterolemia, unspecified; Z87.891 Personal history of nicotine dependence
CPT/HCPCS: 36415; 73502; 80048; 80053; 85025; 85027; 87081; 88305; 88311; 93005; 97110; 97116; 97162; 97166; 97530; 97535; C1776; J7120; J2405

== ENCOUNTER → 2018-07-19 | Outpatient (CLI) | payer OTHER, SELFPAY ==
[2018-04-23 10:51] VITALS: BMI 32.8
--- NOTE | 2018-07-19 13:46 | VDLE_ITS ---
Reason For Study: swelling RIGHT LEFT GSV is normal. CFV is compressible, spontaneous, phasic, CFV is compressible, spontaneous, phasic, competent, and demonstrates normal competent and demonstrates normal augmentation. augmentation. FV is compressible, spontaneous, phasic, competent and demonstrates normal augmentation. POP V is compressible, spontaneous, phasic, competent and demonstrates normal augmentation. T/P Trunk is compressible. PTV is compressible. RT PerV is compressible. Hypoechoic area behind the knee measuring 2.98 x .82 cm. Area is nonvascular. Procedure Exam performed in department. The exam was diagnostic. A preliminary report was called and/or faxed to Dr. Adan's office. Interpretation Summary Deep veins of the right lower extremity are patent and compressible segmentally. There is no evidence of right lower extremity deep vein thrombosis. Valvular competence appears intact within the proximal deep venous system on the right . The right greater saphenous vein appears patent and compressible segmentally. A non-vascular, hypoechoic structure is noted in the right popliteal space, measuring 2.98 cm x 0.82 cm. This probably represents a popliteal cyst. Clinical correlation is advised. Ordering Physician: Annabel Adan Performed By: Mc Dalton RVT
--- NOTE | 2018-07-19 14:05 | RAD_ITS ---
STUDY: X-RAY - RIGHT FOOT CLINICAL: Male, 67 years old. Right leg pain, knee pain and swelling TECHNIQUE: 3 view(s) of the foot. COMPARISON: None. FINDINGS: Calcaneal spur and enthesophyte are identified. Degenerative spurring of the anterior tibiotalar joint and dorsal midfoot articulations. Normal metatarsi. There is degenerative arthrosis of the metatarsophalangeal joint of the hallux . Normal tibial and fibular sesamoid bones. Normal interphalangeal joint of the great toe. Normal phalanges of the great toe. Normal second through fifth metatarsophalangeal joints. Normal interphalangeal joints and phalanges of the lesser toes. The soft tissue structures are unremarkable. RAD/Foot min 3 Views IMPRESSION: No fracture or erosive process. Mild osteoarthrosis of the first MTP joint, dorsal midfoot and tibiotalar joint. Electronically Signed: Russel Lee MD at 12:05 EDT , Service support ,
--- NOTE | 2018-07-19 14:05 | RAD_ITS ---
STUDY: X-RAY - RIGHT ANKLE REASON FOR EXAM: Male, 67 years old. Right leg and ankle pain with swelling TECHNIQUE: 3 view(s) of the ankle. COMPARISON: None. FINDINGS: Normal visualized distal tibia and fibula. Normal medial and lateral malleoli. Mild degenerative changes of the anterior tibiotalar joint. Calcaneal spur and enthesophyte noted. Dorsal spurring of the mid foot articulations. Mild soft tissue swelling of the medial ankle. RAD/Ankle min 3 Views IMPRESSION: 1. No fracture or erosive process. Mild osteoarthrosis of the ankle and dorsal foot. 2. Mild medial ankle soft tissue swelling. Electronically Signed: Russel Lee MD at 12:04 EDT , Service support ,
--- NOTE | 2018-07-19 14:05 | RAD_ITS ---
STUDY: X-RAY - RIGHT KNEE REASON FOR EXAM: Male, 67 years old. Pain TECHNIQUE: 4 view(s) of the knee. COMPARISON: None. FINDINGS: Normal visualized distal femur. Normal visualized proximal tibia and fibula. Normal proximal tibiofibular articulation. Narrowed medial femorotibial compartment with spurring.. Severe narrowing of the lateral femorotibial compartment with spurring. Narrowed patellofemoral compartment with spurring. Soft tissue calcification medial to the medial femoral condyle possibly due to old MCL injury. RAD/Knee 4 or More Views IMPRESSION: Advanced osteoarthritic changes and findings suggestive of old medial collateral ligament injury. MRI would be helpful for further evaluation if indicated Electronically Signed: Mansoor Benavidez MD at 18:12 EDT , Service support ,
== END | disposition home or self-care (01) ==
LOC: CVS 13:42
PROVIDERS: Family Provider Internal Medicine; PCP Internal Medicine; Referring Provider Internal Medicine; Visit Provider Internal Medicine
DX: M79.604 Pain in right leg (principal); M79.89 Other specified soft tissue disorders
CPT/HCPCS: 73564; 73610; 73630; 93971

== ENCOUNTER → 2018-08-01 | Outpatient (CLI) | payer OTHER, SELFPAY ==
[2018-04-23 10:51] VITALS: BMI 32.8
--- NOTE | 2018-08-01 07:20 | MRI_ITS ---
STUDY: MRI RIGHT KNEE REASON FOR EXAM: Male, 67 years old. Right-sided knee and leg pain with decreased mobility. Patient has had previous surgery in 1968. TECHNIQUE: Standardized fat and water weighted pulse sequences were obtained in all 3 orthogonal planes. COMPARISON: Radiographs of the right knee dated July 19, 2018. FINDINGS: There is absence of any normal meniscal material in the medial femoral tibial compartment. This may be the result of tear or previous surgery. There is signal heterogeneity within the articular cartilage of the medial femorotibial compartment with multifocal thinning. Normal medial femoral condyle and tibial plateau. Normal medial collateral ligamentous complex (MCL). Normal distal semimembranosus, gracilis and semitendinosus tendons. The posterior horn of the lateral meniscus has abnormal signal possibly related to mucoid degeneration. The anterior horn of lateral meniscus is not visible in addition to the body of the lateral meniscus. This may be the result of severe tear or surgery. The lateral femoral hyaline cartilage is discontiguous with complete absence of cartilage is located posterior to the lateral condyle Normal lateral femoral condyle and tibial plateau. Normal proximal tibiofibular articulation. Appears to be a tear of the lateral collateral ligament. Normal popliteus tendon. Normal biceps femoris tendon. The anterior cruciate ligament is not visualized suggesting sequela of a tear. There is buckling of an intact PCL. There is arthrosis of the patellofemoral articulation. There is lateral subluxation of the patella in relationship to the trochlear groove. There is diffuse, greater than 50% thickness articular cartilage loss of the patellofemoral compartment. Normal medial and lateral patellar retinaculum. Normal quadriceps tendon. Normal patellar tendon. There is some abnormal signal within Hoffa's fat pad possibly related to previous surgery. There is a small volume joint effusion. 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 The Martin's cyst measures approximately 4.6 cm in cephalocaudal dimension by 2.7 cm in AP dimension by 1.6 cm in transverse dimension. The soft tissues are unremarkable. There are exuberant cystic areas within the posterior tibial plateau possibly related to an enthesopathic erosive changes near the insertion of the posterior cruciate ligament. There are also prominent osteophytes arising from the posterior tibia. MRI/Lower Ext Joint Only (Routine) IMPRESSION: 1. 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 2. Lateral subluxation of the patella. 3. Tear of the anterior cruciate ligament. 4. Tears of the medial and lateral menisci. 5. Martin's cyst. 6. Prominent cystic lesions of the central posterior tibial plateau. Electronically Signed: Rose Schneider MD at 10:42 EDT , Service support ,
== END | disposition home or self-care (01) ==
LOC: MRI 07:05
PROVIDERS: Family Provider Internal Medicine; PCP Internal Medicine; Referring Provider Internal Medicine; Visit Provider Internal Medicine
DX: M79.604 Pain in right leg (principal)
CPT/HCPCS: 73721

== ENCOUNTER → 2018-08-16 | Outpatient (CLI) | payer OTHER, SELFPAY ==
[2018-04-23 10:51] VITALS: BMI 32.8
--- NOTE | 2018-08-16 07:39 | US_ITS ---
PROCEDURES: ULTRASOUND AORTA REASON FOR EXAM: Male, 67 years old. Bilateral carotid stenosis. TECHNIQUE: Ultrasound evaluation of the aorta was performed with real-time and static penaloza-scale imaging. COMPARISON: None. FINDINGS: There is mild atherosclerotic plaque formation of the abdominal aorta. Aorta measures: Proximal 3.0 cm. Middle 1.8 cm. Distal 2.4 cm. Aorta measure transversely: Proximal 2.4 cm. Middle 1.8 cm. Distal 1.6 cm. Right iliac artery measures: 1.3 cm. Right iliac artery measure transversely: 1.2 cm. Left iliac artery measures: 1.4 cm. Left iliac artery measure transversely: 1.1 cm. There is no demonstrated aneurysm.. US/Aorta IMPRESSION: No evidence of abdominal aortic aneurysm. Mild degree of atherosclerotic plaque calcification Electronically Signed: Oziel Murray, at 10:39 EDT , Service support ,
--- NOTE | 2018-08-16 08:11 | CDU_ITS ---
Reason For Study: Bilateral carotid stenosis Rt. Velocities/BP Lt. Velocities/BP Prox CCA 141.1/22.6 cm/sec. Prox CCA 157.6/18.8 cm/sec. Mid CCA 130.1/20.4 cm/sec. Mid CCA 112/18.8 cm/sec. Dist CCA 110.4/20.4 cm/sec. Dist CCA 95.5/20.6 cm/sec. Prox ICA 86.4/17 cm/sec. Prox ICA 93.7/24.3 cm/sec. Mid ICA 80.9/20.6 cm/sec. Mid ICA 97.4/27.9 cm/sec. Dist ICA 88.2/20.6 cm/sec. Dist ICA 75.3/16.3 cm/sec. Rt. ICA/CCA = 0.7. Lt. ICA/CCA = 0.9. Prox ECA 158.7/18.2 cm/sec. Prox ECA 185.2/13.9 cm/sec. Rt. Vert. 43.9/6.4 cm/sec. Lt. Vert. 80.2/11.4 cm/sec. Right Extracranial There is intimal thickening but no significant atherosclerotic plaque noted in the right common carotid artery. There is intimal thickening but no significant atherosclerotic plaque noted in the right internal carotid artery. There is no significant atherosclerotic plaque noted in the right external carotid artery. Antegrade flow is noted in the right vertebral artery. Left Extracranial There is intimal thickening but no significant atherosclerotic plaque noted in the left common carotid artery. There is heterogeneous, smooth atherosclerotic plaque noted in the left internal carotid artery. There is intimal thickening but no significant atherosclerotic plaque noted in the left external carotid artery. The left external carotid artery is not well visualized. Antegrade flow is noted in the left vertebral artery. Procedure Carotid Duplex 35579. Exam performed in department. Interpretation Summary No significant atherosclerotic plaque or stenosis noted in the right internal carotid artery. Mild (<50%) stenosis left extracranial internal carotid. Flow within the vertebral arteries is antegrade bilaterally. Ordering Physician: Annabel Adan Referring Physician: Annabel Adan Performed By: Fern Gaxiola RVT
== END | disposition home or self-care (01) ==
LOC: US 07:35
PROVIDERS: Family Provider Internal Medicine; PCP Internal Medicine; Referring Provider Internal Medicine; Visit Provider Internal Medicine
DX: I65.23 Occlusion and stenosis of bilateral carotid arteries (principal)
CPT/HCPCS: 76775; 93880

== ENCOUNTER → 2018-09-21 | Outpatient (CLI) | payer OTHER, SELFPAY ==
[2018-04-23 10:51] VITALS: BMI 32.8
--- NOTE | 2018-09-21 13:21 | RAD_ITS ---
STUDY: X-RAY - UNILATERAL RIBS ( RIGHT ) WITH CHEST REASON FOR EXAM: Male, 68 years old. Fall yesterday. Pain in the lower anterior right ribs. TECHNIQUE - RIBS: 4 view(s) of the ribs. TECHNIQUE - CHEST: Single PA view of the chest. COMPARISON: None. FINDINGS - RIBS: Normal visualized ribs without a demonstrated fracture. FINDINGS - CHEST: The lungs are clear and expanded. No infiltrate or mass. There is no pneumothorax. There is no demonstrated pleural abnormality. Normal size heart. Normal mediastinum and gordy. Normal visualized pulmonary arteries. Normal visualized aortic arch and descending thoracic aorta. There are diffuse degenerative changes of the visualized thoracic spine. There is evidence of anterior fusion lower cervical spine. There is degenerative osteoarthritis of the bilateral shoulders. There is no demonstrated abnormality of the visualized soft tissue structures of the upper abdomen. RAD/Ribs Uni Min 3V w/PA Chest IMPRESSION: RIBS: Normal x-ray examination of the ribs. CHEST: Degenerative changes, as described above. No demonstrated acute cardiopulmonary process. Electronically Signed: Asaf Stoner DO at 17:15 EDT Tel [phone], Service support ,
== END | disposition home or self-care (01) ==
LOC: HPRAD 13:10
PROVIDERS: Family Provider Internal Medicine; PCP Internal Medicine; Referring Provider Internal Medicine; Visit Provider Internal Medicine
DX: R07.81 Pleurodynia (principal)
CPT/HCPCS: 71101

== ENCOUNTER → 2019-04-03 12:04 | Outpatient (CLI) | payer OTHER, SELFPAY ==
[2018-04-23 10:51] VITALS: BMI 32.8
--- NOTE | 2019-04-03 12:08 | RAD_ITS ---
STUDY: X-RAY - PELVIS AND RIGHT HIP REASON FOR EXAM: Pain extending down right leg. TECHNIQUE: 2 views of the pelvis and hip. COMPARISON: Radiographs 02/20/2019. FINDINGS: There is mild vascular calcification. There are postoperative changes of the lower lumbar spine. Normal bilateral iliac wings and visualized sacrum. There is joint space narrowing of the left sacroiliac joint. Normal bilateral superior and inferior pubic rami. Normal pubic symphysis. Normal bilateral ischial tuberosities. Normal visualized femoral head. Normal acetabulum. Normal right hip joint without joint space narrowing on the standing view. There is a left total hip arthroplasty. RAD/HIP, UNI W/ Pelvis 2-3 Views IMPRESSION: No demonstrated abnormality of the right hip. Left sacroiliac arthrosis. Electronically Signed: Bronson Prabhakar MD at 14:14 EST Tel , Service support ,
== END ==
PROVIDERS: PCP Internal Medicine; Referring Provider Internal Medicine; Visit Provider Internal Medicine
DX: M79.604 Pain in right leg (principal)
CPT/HCPCS: 73502

== ENCOUNTER → 2019-07-31 09:19 | Outpatient (CLI) | payer OTHER, SELFPAY ==
[2018-04-23 10:51] VITALS: BMI 32.8
--- NOTE | 2019-07-31 09:32 | MRI_ITS ---
STUDY: MRI BRAIN WITH AND WITHOUT CONTRAST REASON FOR EXAM: Male, 68 years old. posterior fossa stroke, ataxia, hyperreflexia, hyperexplexia TECHNIQUE: Standardized multiplanar fat and water weighted pulse sequences were obtained. IV Dotarem 20ml was administered for the contrast portion of the examination. COMPARISON: 03/05/2018 FINDINGS: There is mild cerebral atrophy with widening of the extra-axial spaces and ventricular dilatation. There are a limited number of small white matter hyperintensities, distributed throughout the deep white matter tracts of the cerebral hemispheres, consistent with mild chronic white matter ischemic changes. There is no evidence for recent intracranial ischemia or other cause of cytotoxic edema on diffusion weighted imaging (DWI). Normal T2* images of the brain without demonstrated susceptibility artifact. There is no demonstrated hemosiderin stain. Normal bilateral basal ganglia. Normal thalami. There is no extra-axial fluid accumulation. Normal flow voids within the major intracranial circulation suggesting patency by spin echo criteria. Normal venous enhancement. There is no enhancing intra-axial or extra-axial abnormality. Normal sella turcica, pituitary gland, infundibular stalk, optic chiasm and hypothalamus. Normal tectal plate and pineal gland. Normal midbrain, juan a and medulla. Normal cerebellum. Normal basal cisterns. Normal bilateral temporal bones. Normal bilateral internal auditory canals. There are bilateral ocular lens implants with otherwise normal intraorbital contents. Normal visualized paranasal sinuses. Normal calvarium and skull base. Normal visualized soft tissue structures. Normal visualized upper cervical spine. MRI/Brain W/WO Contrast IMPRESSION: Involutional changes of the brain, as described above. No acute infarct. Electronically Signed: Kevin Bullock MD at 10:52 EDT Tel , Service support ,
[2019-07-31 10:26] LABS: CREATININE FINGERSTICK 0.7 mg/dL (0.70-1.30); EGFR FINGERSTICK > 60.0000 mL/min (>60)
== END ==
PROVIDERS: PCP Internal Medicine; Referring Provider Psychiatry & Neurology Neurology; Visit Provider Psychiatry & Neurology Neurology
DX: R27.0 Ataxia, unspecified (principal)
CPT/HCPCS: 70553; A9575

== ENCOUNTER → 2019-10-31 15:02 | Outpatient (CLI) | payer OTHER, SELFPAY ==
[2018-04-23 10:51] VITALS: BMI 32.8
--- NOTE | 2019-10-31 15:08 | RAD_ITS ---
STUDY: X-RAY - RIGHT FOOT CLINICAL: Male, 69 years old. PAIN TECHNIQUE: 3 view(s) of the foot. COMPARISON: 07/19/2018 FINDINGS: There is stable Achilles and plantar spur. There is degenerative change in the tarsotarsal joints. Normal visualized subtalar, talonavicular, calcaneocuboid, tarsal and tarsometatarsal articulations. Normal metatarsi. Normal metatarsophalangeal joint of the great toe. Normal tibial and fibular sesamoid bones. There is degenerative arthrosis of the interphalangeal joint of the great toe. Normal phalanges of the great toe. Normal second through fifth metatarsophalangeal joints. Normal interphalangeal joints and phalanges of the lesser toes. The soft tissue structures are unremarkable. RAD/Foot min 3 Views IMPRESSION: Achilles and plantar spurs stable since prior study. No visualized acute fracture. Electronically Signed: Alejandra Padilla MD at 23:30 EDT Tel , Service support ,
--- NOTE | 2019-10-31 15:09 | RAD_ITS ---
STUDY: X-RAY - PELVIS AND RIGHT HIP REASON FOR EXAM: Male, 69 years old. PAIN TECHNIQUE: 2 views of the pelvis and hip. COMPARISON: None. FINDINGS: There is a non-specific bowel gas pattern. Normal visualized soft tissue structures. Postoperative lumbar changes. Normal bilateral iliac wings, sacroiliac joints and visualized sacrum. Normal bilateral superior and inferior pubic rami. Normal pubic symphysis. Normal bilateral ischial tuberosities. Left hip arthroplasty with normal alignment. Stable mild right hip osteoarthritis. RAD/HIP, UNI W/ Pelvis 2-3 Views IMPRESSION: Stable mild right hip osteoarthritis. Electronically Signed: Michael Siddiqui MD at 19:45 EDT Tel , Service support ,
== END ==
PROVIDERS: PCP Internal Medicine; Referring Provider Internal Medicine; Visit Provider Internal Medicine
DX: M25.551 Pain in right hip (principal); M79.671 Pain in right foot
CPT/HCPCS: 73502; 73630

== ENCOUNTER → 2019-11-28 10:08 | Outpatient (CLI) | payer OTHER, SELFPAY ==
[2018-04-23 10:51] VITALS: BMI 32.8
--- NOTE | 2019-11-28 10:10 | CDU_ITS ---
Reason For Study: carotid stenosis Rt. Velocities/BP Lt. Velocities/BP Prox CCA 86.5/16.0 cm/sec. Prox CCA 76.0/16.0 cm/sec. Mid CCA 95.6/20.0 cm/sec. Mid CCA 76.0/19.9 cm/sec. Dist CCA 85.2/18.6 cm/sec. Dist CCA 49.9/17.3 cm/sec. Prox ICA 79.9/20.0 cm/sec. Prox ICA 51.2/12.1 cm/sec. Mid ICA 61.7/17.3 cm/sec. Mid ICA 69.5/21.2 cm/sec. Dist ICA 73.4/23.9 cm/sec. Dist ICA 53.9/22.6 cm/sec. Rt. ICA/CCA = .8. Lt. ICA/CCA = .9. Prox ECA 98.2/14.7 cm/sec. Prox ECA 103.4/14.7 cm/sec. Rt. Vert. 46.0/10.8 cm/sec. Lt. Vert. 47.3/12.1 cm/sec. Right Extracranial There is intimal thickening but no significant atherosclerotic plaque noted in the right common carotid artery. There is intimal thickening but no significant atherosclerotic plaque noted in the right internal carotid artery. There is intimal thickening but no significant atherosclerotic plaque noted in the right external carotid artery. Antegrade flow is noted in the right vertebral artery. Left Extracranial There is intimal thickening but no significant atherosclerotic plaque noted in the left common carotid artery. There is heterogeneous, irregular atherosclerotic plaque noted in the left internal carotid artery. There is intimal thickening but no significant atherosclerotic plaque noted in the left external carotid artery. Antegrade flow is noted in the left vertebral artery. Procedure Carotid Duplex 11744. The exam was diagnostic. Exam performed in department. Interpretation Summary No significant atherosclerotic plaque or stenosis noted in the right internal carotid artery. Mild (<50%) stenosis left extracranial internal carotid. Flow within the vertebral arteries is antegrade bilaterally. Ordering Physician: Annabel Adan Performed By: Mc Dalton RVT
== END ==
PROVIDERS: PCP Internal Medicine; Referring Provider Internal Medicine; Visit Provider Internal Medicine
DX: I65.23 Occlusion and stenosis of bilateral carotid arteries (principal)
CPT/HCPCS: 93880

== ENCOUNTER → 2020-03-26 13:15 | Outpatient (CLI) | payer OTHER, SELFPAY ==
[2018-04-23 10:51] VITALS: BMI 32.8
--- NOTE | 2020-03-26 13:24 | MRI_ITS ---
STUDY: MRI LUMBAR SPINE WITH AND WITHOUT CONTRAST REASON FOR EXAM: Male, 69 years old. clonus, low back pain, left leg pain, hx prior surgery 4 yrs ago TECHNIQUE: Standardized fat and water weighted pulse sequences were obtained in the sagittal and axial planes. IV Dotarem 20ml was administered for the contrast portion of the examination. COMPARISON: None FINDINGS: T12-L1: Normal endplates. Normal disc height, hydration and morphology. Normal bilateral facet joints. Normal central canal and bilateral lateral recesses. Normal bilateral intervertebral neural foramina. Normal lumbar lordosis. There is no substantial scoliosis. Normal conus medullaris that terminates at the T12/L1. L1-2: 2 mm retrolisthesis of L1 on L2 with a moderate broad disc protrusion with an inferiorly extending left paracentral and preforaminal extrusion produces moderate spinal stenosis, mild right lateral recess stenosis, severe left lateral recess stenosis with effacement the left L2 nerve root and mild bilateral neural foraminal stenosis. L2-3: Status post posterior decompression and transpedicular fixation with anatomic alignment and no spinal stenosis or neural foraminal stenosis. 2 x 3 cm of the seroma at the site of posterior decompression spanning from L3 to L4. L3-4: Status post posterior decompression with transpedicular fixation with 5 mm of anterolisthesis of L3 on L4 with no disc protrusion, spinal stenosis, or neural foraminal stenosis. L4-5: Status post posterior decompression with transpedicular fixation with anatomic alignment and no spinal stenosis or neural foraminal stenosis. L5-S1: Normal endplates. Normal disc height, hydration and morphology. Normal bilateral facet joints. Normal central canal and bilateral lateral recesses. Normal bilateral intervertebral neural foramina. Normal visualized sacral ala. Normal visualized paraspinous soft tissue structures. There is no demonstrated abnormal enhancement. MRI/Spine Lumbar W/WO Contrast IMPRESSION: Status post posterior decompression and transpedicular fixation from L2 through L5 with moderate degenerative disc disease at L1/L2 with a large inferiorly extending left paracentral and preforaminal extrusion producing severe left lateral recess stenosis with effacement the left L2 nerve root. Electronically Signed: Kevin Bullock MD at 15:17 EST Tel , Service support ,
== END ==
PROVIDERS: PCP Internal Medicine; Referring Provider Internal Medicine; Visit Provider Internal Medicine
DX: R25.8 Other abnormal involuntary movements (principal)
CPT/HCPCS: 72158; A9575

== ENCOUNTER → 2021-01-20 14:40 | Outpatient (CLI) | payer OTHER, SELFPAY ==
--- NOTE | 2021-01-20 14:45 | RAD_ITS ---
STUDY: X-RAY CHEST REASON FOR EXAM: Male, 70 years old. Shortness of breath. TECHNIQUE: PA and lateral views of the chest. COMPARISON: Right RIBS and chest, 09/21/2018. FINDINGS: The lungs are clear and expanded. There is no demonstrated pleural abnormality. Normal size heart. Normal mediastinum and gordy. Normal visualized pulmonary arteries. Normal visualized aortic arch and descending thoracic aorta. There are diffuse degenerative changes of the visualized thoracic spine. Again seen is fusion of the lower cervical spine. There is degenerative osteoarthritis of the bilateral shoulders. There is no demonstrated abnormality of the visualized soft tissue structures of the upper abdomen. RAD/Chest PA and Lateral IMPRESSION: Degenerative changes, as described above. No demonstrated acute cardiopulmonary process. No major interval change. Electronically Signed: Asaf Stoner DO at 17:11 EST Tel [phone], Service support ,
== END ==
PROVIDERS: PCP Internal Medicine; Referring Provider Internal Medicine; Visit Provider Internal Medicine
DX: R06.02 Shortness of breath (principal)
CPT/HCPCS: 71046

== ENCOUNTER → 2021-01-28 12:45 | Outpatient (CLI) | payer OTHER, SELFPAY ==
[2018-04-23 10:51] VITALS: BMI 32.8
--- NOTE | 2021-01-28 12:49 | CT_ITS ---
STUDY: RIGHT LOWER EXTREMITY REASON FOR EXAM: Male, 70 years old. RIGHT KNEE OSTEOARTHRITIS RADIATION DOSAGE (If Supplied By Facility): CTDIvol = ( 18.73 ) mGy, DLP = ( 1586.83 ) mGycm. Individualized dose optimization techniques were used for this CT.? TECHNIQUE: Axial multidetector CT scan of the right knee. [facility] protocol. Coronal and sagittal reformatted images. COMPARISON: None. FINDINGS: No acute fracture line. No acute dislocation. No acute cortical destruction. Right hip: Moderate/severe right hip arthritis (coronal image 6 series 601). Mild pubic symphysis arthrosis. Moderate sacroiliac joint arthrosis with partial ankylosis. Visualized intra-abdominal/pelvic contents within normal limits given technique. Vascular calcifications. No acute muscle abnormality. No acute soft tissue process. Right knee: Severe medial compartment arthrosis. Severe lateral compartment arthrosis. Severe patellofemoral arthrosis. Exuberant osteophyte production. Moderate proximal tibiofibular arthrosis. Small volume joint effusion. Small popliteal cyst. Moderate anterior soft tissue swelling. Punctate soft tissue calcification. Vascular calcifications. No acute muscle abnormality. Right ankle: Moderate midfoot arthrosis. Os trigonum. Plantar spur. Achilles enthesophyte. Mild hindfoot arthrosis. Mild soft tissue swelling. Vascular calcifications. No acute muscle abnormality. CT/Extremity Lower without Contra IMPRESSION: Severe right knee tricompartmental osteoarthritis Right knee small joint effusion, small popliteal cyst and moderate soft tissue swelling Right hip and right ankle osteoarthritis, as above Electronically Signed: Rolando Fall DO at 9:21 EST Tel , Service support ,
== END ==
PROVIDERS: PCP Internal Medicine; Referring Provider Orthopaedic Surgery; Visit Provider Orthopaedic Surgery
DX: M17.11 Unilateral primary osteoarthritis, right knee (principal)
CPT/HCPCS: 73700

== ENCOUNTER 2021-03-02 17:03 | Observation (INO) | payer OTHER, MEDICARE, SELFPAY ==
[2018-04-23 10:51] VITALS: BMI 32.8
--- NOTE | 2021-02-17 13:53 | EKG12_ITS ---
Test Reason : PRE OP Blood Pressure : / mmHG Vent. Rate : 063 BPM Atrial Rate : 063 BPM P-R Int : 178 ms QRS Dur : 090 ms QT Int : 396 ms P-R-T Axes : 059 063 056 degrees QTc Int : 405 ms Normal sinus rhythm Normal ECG Confirmed by CHARITY GATICA, NESTOR ([id number]), editor dictionary ISHMAEL LAZO ([id number]) on 02/18/2021 11:34:54 AM Referred By: Saleem Rider Confirmed By:NESTOR NASH MD
[2021-02-17 15:34] LABS: Hematocrit 38.6 % (40-54); Hemoglobin 12.4 g/dL (13.0-16.5); Mean Corp Hgb Conc 32.1 g/dL (32-36); Mean Corpuscular Hgb 31.5 pg (27.0-32.0); Mean Platelet Vol. 8.7 fl (6.2-12.0); Platelet Count 312 K/mm3 (150-450); RBC Distribution Width CV 11.5 % (11.6-14.6); RBC Distribution Width SD 41.7 fl (35.1-43.9); Red Blood Count 3.94 M/mm3 (4.6-6.2); White Blood Count 5.6 K/mm3 (4.4-11.0)
[2021-02-17 15:44] LABS: Partial Thromboplast Time 33.6 Seconds (24.1-36.2); Prothrombin Time (Protime)PT. 12.6 SECONDS (11.7-14.9)
[2021-02-17 15:56] LABS: Hemoglobin A1c 5.2 % (3.8-5.6)
[2021-02-17 15:59] LABS: Anion Gap 7 (5-15); BUN 24 mg/dL (7-18); BUN/Creat Ratio 32.3 RATIO (10-20); Chloride 105 mmol/L (98-107); Creatinine, Serum 0.74 mg/dL (0.70-1.30); EST Glomerular Filtration Rate 111 mL/min (>60); Est Glom Filt Rate - Afr Amer 135 mL/min (>60); Glucose 90 mg/dL (74-106); Potassium 4.4 mmol/L (3.5-5.1); Sodium Level 138 mmol/L (136-145)
[2021-02-17 16:40] LABS: AST(SGOT) 20 U/L (15-37); Alanine Aminotransfer ALT/SGPT 30 U/L (16-61); Albumin, Serum 3.5 g/dL (3.2-5.0); Alkaline Phosphatase 100 U/L (45-117); Globulin 4.1 g/dL (2.2-4.2); Magnesium 2.1 mg/dL (1.6-2.6); Protein, Total 7.6 g/dL (6.4-8.2)
[2021-03-02] VITALS (15 sets, daily range): BP systolic 108–131; BP diastolic 60–82; PULSE 58–88; RESP 16–18; TEMP 36.1–36.7; O2SAT 93–100; BMI 34.4
--- NOTE | 2021-03-02 | KNEE_PTH ---
PATIENT: LEWIS VEGA LOC: MS3 U#:[id number] AGE/SX: 70/M ROOM: SD313 RE03/02/[address]: Dr. Saleem Rider DO : 1950 BED: 1 DIS: 03/08/2021 SPEC #: [id number] RECD: 03/02/21 15:53 STATUS: PATRIC REQ #: [id number] MODESTA: 03/02/21 00:[address]: Saleem Rider DEPT: SURGICAL PATHOLOGY RECD BY: Luis Walden ENTERED: 03/03/21 08:52 SP TYPE: TOTAL KNEE OTHR DR: Dr. Annabel Adan, DO Tissues: Knee, NOS Procedures: Decalcification bone/plaque Surgery Specimen Level IV HEADER OPERATION: ERAS, total knee replacement robotic arm assist PRE-OP DIAGNOSIS: Primary osteoarthritis TISSUE SUBMITTED: Right knee bone MICROSCOPIC DIAGNOSIS Bone and soft tissue, right knee, total knee replacement/resection: Pieces of bone with degenerative osteoarthritic changes. Fibroadipose tissue, fibroconnective tissue and reactive synovial tissue. SJ:petty 03/08/2021 MICROSCOPIC DESCRIPTION Slides are reviewed. GROSS DESCRIPTION Received is one container designated bone and soft tissue right knee. The specimen consists of multiple fragments of lara-yellow bone measuring in aggregate 16 x 13 x 2 cm. Also in the specimen container are multiple fragments of yellow-white soft tissue measuring in aggregate 2 x 2 x 0.5 cm. A number of bony fragments contain articular surfaces consistent with tibial plateau and femoral condyle and displaying prominent osteophyte formation, eburnation, and bone erosion. Flatwork Tier sections are submitted in two cassettes as follows: 1 - soft tissue, 2 - bone after decalcification. / AM:petty 03/03/21 TC:5 [facility]: [id number], [id number]
[2021-03-02] MEDS: Scopolamine 1mg/72hr Patch 1 PATCH TD (11:28)
[2021-03-02] MEDS: Acetaminophen 500 MG Tablet 1000 MG PO ×2 (11:28→21:50)
[2021-03-02] MEDS: Gabapentin 600 MG Tablet PO (11:28)
[2021-03-02 12:05] LABS: Bedside Glucose 71 mg/dL (70-110)
--- NOTE | 2021-03-02 12:20 | RAD_ITS ---
STUDY: X-RAY - RIGHT KNEE REASON FOR EXAM: Male, 70 years old. Post op -- AP and Lateral xray of operative knee in PACU TECHNIQUE: 2 view(s) of the knee. COMPARISON: Comparison is made with prior study dated 07/19/2018. FINDINGS: Normal visualized distal femur. Normal visualized proximal tibia and fibula. Normal proximal tibiofibular articulation. The patient is status post total knee replacement. There is good alignment. Postoperative soft tissue changes. RAD/Knee 1 or 2 Views IMPRESSION: Status post total knee replacement. There is good alignment. Postoperative soft tissue changes. Electronically Signed: Oziel Murray MD at 15:35 EST , Service support ,
[2021-03-02] MEDS: Lactated Ringers 1,000 ML 999 ML IV (13:20)
[2021-03-02] MEDS: Lactated Ringers 1,000 ML 125 ML IV (13:20)
--- NOTE | 2021-03-02 14:25 | OP.PCM_ITS ---
Report of Operation Date of Procedure: 03/02/21 Pre-Operative Diagnosis: OA right knee Post-Operative Diagnosis: same Surgery/Procedure Performed:: Right TKR Description of Surgical Findings:: Report of Operation Date of Procedure: 03/02/21 Preoperative Diagnosis: [right ] knee primary osteoarthritis Postoperative Diagnosis: [ right ] knee primary osteoarthritis Operation: Robotic Assisted Knee Total Arthroplasty, [right ] knee Surgeon: Dr Saleem Rider DO Sql Developer Dba: Akshat Mabry PA-C Anesthesia: spinal Anesthesiologist: Matthew Zeng M.D. Findings: Stable knee with good patella tracking Specimen(s): Bony cuts Complications: No intraoperative complications Estimated Blood Loss: 50 cc IV Fluids: 1000 cc crystalloid Implants Used: 1. [employer] Triathlon press-fit CR size 7 femur 2. [place] Triathlon size 8 tibia 3. 38 mm patella 4. 9 mm CS polyethylene Brief History Operative Indications: [ (a70 y/o male) ] with history of [right ] knee osteoarthrosis with radiographic findings with loss of joint space, osteophyte formation and subchondral sclerosis. Failed conservative measures as mentioned in the H&P. Discussion of total knee arthroplasty as well as risk and benefits were discussed with the patient including but not limited to blood loss, DVTs, PEs, neurovascular damage, general risk of anesthesia including loss of life, and stiffness or instability were also discussed with the patient. Patient demonstrated understanding and was able to sign informed consent. Procedure: On the date of procedure, patient's [ right ] lower extremity was marked in the preoperative area. The patient was then taken back to the operating room where that patient was placed on the table in the supine position. All bony prom inences were identified and well-padded. Anesthesia assumed control of the C- spine and airway throughout the remainder of the procedure. A tourniquet was placed on the [right ] upper thigh and the leg was prepped in a sterile fashion. The surgeon then scrubbed at this time. Upon reentering the room, the [right ] lower extremity was draped in a standard orthopedic fashion. A timeout was then called and everyone agreed upon the side, the site, the procedure to be performed, patient's identity and antibiotics given. Esmarch bandage was used to exsanguinate the extremity and the tourniquet was placed up to 250 mmHg with the knee in flexion. A midline skin incision was made and a sharp dissection was taken down through skin, subcutaneous tissue and fat. The standard medial parapatellar incision was made and the patella was subluxed laterally. An appropriate deep MCL release was done and the fat pad was resected. Our attention was then directed to the patella. The patella was everted and a flat resection was made. The knee was then flexed up and 2 femoral pins were placed inside the incision and 2 tibial pins were placed outside the incision in the medial tibia bicortically. Once this was completed, the 2 checkpoints in the femur and tibia were placed. Knee was then flexed up and the bony landmarks were registered. Once the was completed, the knee taken through range of motion and manually stressed allowing us to plan for an appropriate tibial cut. The robotic arm was brought into the field sterilely and checkpoint and saw were registered. Based on the patient's deformity, the tibial cut was made in [2 degrees varus ]. At this time, the tensioner was then placed in the joint and ligament tension was checked at 90 degrees and full extension. Based on the patient's ligamentous tension, appropriate adjustments were made to the operative plan and ligament releases were done. Once we were happy with our operative plan with balanced flexion and extension gaps, our attention was directed to the femur. The robot was brought into the field sterilely and registered. Posterior condylar cuts, anterior chamfer cuts and anterior cuts were appropriately made for a [ size 7 ] femur. When these were completed, the saws were switched out in the distal femoral and posterior chamfer cuts were made. Protecting the soft tissue throughout this time. A [ size 8 ] base plate was selected. The knee was flexed to 90 degrees and soft tissues and posterior osteophytes were removed from the joint. 40 cc of the periarticular injection was injected into the posterior medial corner of the joint. The appropriate trials were then placed on the femur and tibia. A trial polyethylene was trialed to ensure proper balancing and stability of the knee. The appropriate tibial internal rotation was then marked with a bovie. Our attention was then directed to the patella. The lug holes were drilled and the patella trial was placed. Patellar tracking was checked and deemed alberto ropriate. Once we were happy, lug holes were drilled for the femur and trial components were removed. The tibia was subluxed and pinned into place and the keel was punched and drilled appropriately. Final components were verified and opened. The wound was copiously irrigated with normal saline. The components were impacted into place with the tibia, femur and finally the patella. The trial poly component was placed and the knee was placed in full extension. The tracking, alignment and balance were verified and a [ 9 mm CS ] polyethylene component was placed. Once the final components were placed an Irrisept lavage was performed and the wound was copiously irrigated with normal saline solution and the periarticular injection was given. the wound was closed in a layer-phillips fashion using #1 vicryl interrupted sutures for the arthrotomy, 2-0 interrupted vicryl suture for the subcuticular layer and qasim for final skin closure. A sterile compressive dressing was then placed. The patient was then awakened from anesthesia, transferred to the [facility] and transferred to the PACU for recovery. My physician assistant technician was a vital part of this case. He was important in appropriate retraction during the case, and protection of soft tissues during bony cuts. His intimate knowledge of the case and my steps aided in safe and expedient completion of the procedure as well as appropriate position of the leg during the case. He was also vital in assisting with closure under my direct supervision. Due to the complexity of this case, robotic arm was used to assist in the surgery to improve accuracy and clinical outcomes. Post-op Plan: DVT ppx; ASA 81 mg BID, thigh high compression stockings Follow up: in office in 2 weeks for wound check PT: to start POD #0 at hospital, outpatient PT should be arranged. Preoperative antibiotic: Ancef 2 grams IV aSleem Rider DO Surgeon: Saleem Rider piano accompanist: Akshat Mabry Type of Anesthesia: Spinal Anesthesiologist: Matthew Zeng Estimated Blood Loss (mL): 50 cc Fluids Replaced: 1000 cc crystalloid Admit VTE Documentation VTE Present on Admission: No VTE Mechan Device Prophylaxis: SCD's VTE Pharm Prophylaxis ordered?: Yes
--- NOTE | 2021-03-02 15:11 | EKG12_ITS ---
Test Reason : SVETA Blood Pressure : / mmHG Vent. Rate : 074 BPM Atrial Rate : 074 BPM P-R Int : 212 ms QRS Dur : 094 ms QT Int : 398 ms P-R-T Axes : 106 084 048 degrees QTc Int : 441 ms Somatic/Motion Artifact Sinus rhythm with 1st degree A-V block Confirmed by YURIDIA GATICA, ALLISON ([id number]), online content editor ISHMAEL LAZO ([id number]) on 03/08/2021 10:28:58 AM Referred By: Saleem Rider Confirmed By:ALLISON SHI MD
[2021-03-02] MEDS: Lactated Ringers 1,000 ML 15 ML IV (15:47)
[2021-03-02] MEDS: Cefazolin 1 GM/50 ML BAG IV (19:43)
[2021-03-02] MEDS: Aspirin 81 MG TAB.CHEW PO (21:51)
[2021-03-02] MEDS: Sertraline 50 MG Tablet PO (21:51)
[2021-03-02] MEDS: Metoprolol(XL)Succ 25 MG Tablet PO (21:51)
[2021-03-02] MEDS: Atorvastatin Calcium 40 MG Tablet PO (21:51)
[2021-03-02] MEDS: Tamsulosin HCl 0.4 MG Capsule 0.8 MG PO (21:51)
[2021-03-02] MEDS: Senna/Docusate Sodium 1 Tablet 2 TABLET PO (21:51)
--- NOTE | 2021-03-02 22:02 | PCS.PANDOC ---
PANDEMIC DOCUMENTATION INITIATED: Date: 03/02/2021 Time: 1900
[2021-03-03] VITALS (7 sets, daily range): BP systolic 126–141; BP diastolic 62–83; PULSE 69–77; RESP 16–18; TEMP 36.2–37.4; O2SAT 95–98
[2021-03-03] MEDS: Cefazolin 1 GM/50 ML BAG IV (04:40)
[2021-03-03] MEDS: oxyCODONE 5 MG Tablet PO ×3 (04:43→16:33)
[2021-03-03] MEDS: Acetaminophen 500 MG Tablet 1000 MG PO ×3 (05:28→20:30)
[2021-03-03 06:12] LABS: Hematocrit 32.6 % (40-54); Hemoglobin 10.9 g/dL (13.0-16.5); Mean Corp Hgb Conc 33.4 g/dL (32-36); Mean Corpuscular Hgb 32.2 pg (27.0-32.0); Mean Corpuscular Volume 96.4 fL (80-94); Platelet Count 278 K/mm3 (150-450); RBC Distribution Width CV 11.8 % (11.6-14.6); RBC Distribution Width SD 41.4 fl (35.1-43.9); Red Blood Count 3.38 M/mm3 (4.6-6.2); White Blood Count 9.7 K/mm3 (4.4-11.0)
[2021-03-03 06:39] LABS: Anion Gap 7 (5-15); BUN 19 mg/dL (7-18); BUN/Creat Ratio 22.4 RATIO (10-20); Calcium,Total 8.5 mg/dL (8.5-10.1); Chloride 106 mmol/L (98-107); Creatinine, Serum 0.85 mg/dL (0.70-1.30); EST Glomerular Filtration Rate 96 mL/min (>60); Est Glom Filt Rate - Afr Amer 116 mL/min (>60); Estimated Creatinine Clearance 83.18 ml/min; Glucose 112 mg/dL (74-106); Potassium 4.2 mmol/L (3.5-5.1); Sodium Level 138 mmol/L (136-145)
--- NOTE | 2021-03-03 06:44 | PCM.PN.ORT ---
Subjective Subjective Doing well this AM. Up in chair awaiting breakfast. Objective Data Objective Data Vital Signs: Vital Signs Temp Pulse Resp BP Pulse Ox 97.2 F L 72 18 141/83 H 96 03/03/21 04:45 03/03/21 04:45 03/03/21 04:45 03/03/21 04:45 03/03/21 04:45 Oxygen Flow Rate (L/min) 4 Oxygen Delivery Method Room Air Weight: 233 lb 11.04 oz Body Mass Index (BMI) 34.4 Intake & Output: Intake and Output for Last 24 Hours 03/01/21 03/02/21 03/03/21 23:59 23:59 23:59 Intake Total 3284.42 / 3284.42 452.08 / 452.08 Output Total 250 / 250 Balance 3284.42 / 3284.42 202.08 / 202.08 Lab / Micro Data Result Diagrams: 03/03/21 05:40 03/03/21 05:40 Labs: Laboratory Results - last 24 hr 03/02/21 11:21: POC Glucose 71 03/03/21 05:40: WBC 9.7, RBC 3.38 L, Hgb 10.9 L, Hct 32.6 L, MCV 96.4 H, MCH 32.2 H, MCHC 33.4, RDW Std Deviation 41.4, RDW Coeff of Jarad 11.8, Plt Count 278, MPV 9.0 03/03/21 05:40: Sodium 138, Potassium 4.2, Chloride 106, Carbon Dioxide 25.0, Anion Gap 7, BUN 19 H, Creatinine 0.85, Estim Creat Clear Calc 83.18, Est GFR (MDRD) Af Amer 116, Est GFR (MDRD) Non-Af 96, BUN/Creatinine Ratio 22.4 H, Glucose 112 H, Calcium 8.5 Micro: Microbiology 02/17/21 14:08 Swab (Method) Nasal Screen MRSA/MSSA - Final Radiography Diagnostic Testing: Radiology Impression Knee X-Ray 03/02/21 12:20 IMPRESSION: Status post total knee replacement. There is good alignment. Postoperative soft tissue changes. Electronically Signed: Oziel Murray MD at 15:35 EST , Service support , Physical Exam Const alert and oriented x3 General Appearance: cooperative Extremity normal capillary refill, no clubbing, cyanosis or edema and no calf tenderness Right Lower Extremity: knee joint inspection (Incision stable) and neurovascular exam (intact) Assessment & Plan Assessment/Plan (1) History of pain when walking: PLAN: PT this morning. Discharge this PM.
[2021-03-03] MEDS: Cholecalciferol (VIT D3) 25 MCG TABLET (1,000 UNITS) 75 MCG PO (07:53)
[2021-03-03] MEDS: Multivitamins,Therapeutic Tablet 1 TABLET PO (07:53)
[2021-03-03] MEDS: Aspirin 81 MG TAB.CHEW PO ×2 (07:53→16:33)
[2021-03-03] MEDS: Sertraline 50 MG Tablet PO ×2 (07:54→20:30)
[2021-03-03] MEDS: Metoprolol(XL)Succ 25 MG Tablet PO ×2 (07:54→20:28)
[2021-03-03] MEDS: Senna/Docusate Sodium 1 Tablet 2 TABLET PO ×2 (07:54→20:29)
--- NOTE | 2021-03-03 10:23 | CASEMGMT ---
KOURTNEY MORENO Assessment: Face to Face with pt for initial transition planning/care coordination assessment. Patient sitting in recliner in no apparent distress. RN CM introduced self and role at [facility], pt voices understanding and consents to assessment. Pt is A/O x4 and answers all questions appropriately at this time. Care providers, pharmacy, and demographics verified/updated. Admitting Dx: Right total knee replacement PCP: Dr. Adan Specialists: Teerso- ortho, Olivier- pain management, states has sleep doctor but unsure of name Preferred Pharmacy: [facility] Insurance: [employer] Prescription Benefit: yes LW/HPOA: Patient states is HPOA. Patient made aware LW/HPOA documents not on file at [facility] and may be brought into hospital to be scanned into record. LNOK: , Olivia Chu Living Arrangements: Pt lives with , daughter and two grandchildren in one story house with 4 steps to enter home with railing. Patient states independent with ADLs prior to hospitalization. Transportation: Pt drives self and denies concerns with transportation. will transport to therapy. DME/HHC/SNF: Patient has FWW, shower chair, bedside commode, grab bars and CPAP (no oxygen). Reports previous HHC through [facility] following back surgery in the past. Previous SNF stay at [facility] in [place], [place] following previous hip surgery. Patient has outpatient therapy appointment scheduled tomorrow at facility in [place], [place]. Pt states no concerns with going home at time of dc. Pt states no further concerns/needs. CM to follow. Advised pt to ask CM if any further question/concerns/needs arise, voices understanding. Pt Goal: home Plan: home with outpatient PT
[2021-03-03] MEDS: Ferrous Sulfate 325 MG Tablet PO (11:57)
[2021-03-03] MEDS: amLODIPine 5 MG Tablet PO (11:57)
[2021-03-03] MEDS: Lisinopril 10 MG Tablet PO (11:58)
--- NOTE | 2021-03-03 16:08 | CASEMGMT ---
Social Work Note PT/OT updated this worker that pt's is requesting SNF for pt. Pt has been to [facility] in [place] before and that is where pt will want to go. BRE in to speak with pt and pt's Olivia ([phone]). BRE introduced self and role at [facility]. BRE spoke with pt and Olivia about discharge plans. Pt and Olivia agreeable to SNF and preferred provider is [facility] in [place]. Olivia states pt has been there before and she has already spoken to staff at the SNF who states they will hold a bed for pt. BRE explained this worker still needs to make a referral and pt will need pre-cert. Olivia states understanding. BRE placed a call to [facility] in [place] and spoke with Lorena DÍAZ and TIFFANIE Escoto. Jevon states she is aware of the referral for pt and confirms she will need pre-cert. Jevon states to fax referral to [phone]. BRE faxed referral to [facility]. Plan: [facility] pending acceptance and pre-cert Fern Stephenson SPACE CONTROL SUPERVISOR, MANAGER EXCHANGE
[2021-03-03] MEDS: Atorvastatin Calcium 40 MG Tablet PO (20:28)
[2021-03-03] MEDS: Tamsulosin HCl 0.4 MG Capsule 0.8 MG PO (20:28)
[2021-03-03] MEDS: 0.9% Saline Lock 10 ML Syringe IV (20:34)
[2021-03-04] MEDS: Acetaminophen 500 MG Tablet 1000 MG PO ×3 (04:50→22:27)
[2021-03-04] MEDS: oxyCODONE 5 MG Tablet PO ×5 (04:51→22:27)
[2021-03-04 04:56] VITALS: BP 135/65; PULSE 79; RESP 18; TEMP 37.2; O2SAT 100
--- NOTE | 2021-03-04 07:58 | PCM.PN.ORT ---
Subjective Subjective Patient lying in bed sleeping. Patient easy to awake. Patient alert and oriented. Patient states he is still having pain in his operative knee. Patient states he is having very difficult time, and was unable to ambulate upstairs. Patient states he is feels his leg is been very weak and is concerned about going home. Patient denies chest pain, shortness of breath, calf pain, nausea vomiting. Objective Data Objective Data Vital Signs: Vital Signs Temp Pulse Resp BP Pulse Ox 99.0 F 79 18 135/65 H 100 03/04/21 04:56 03/04/21 04:56 03/04/21 04:56 03/04/21 04:56 03/04/21 04:56 Oxygen Flow Rate (L/min) 4 Oxygen Delivery Method Room Air Weight: 106 kg Body Mass Index (BMI) 34.4 Intake & Output: Intake and Output for Last 24 Hours 03/02/21 03/03/21 03/04/21 23:59 23:59 23:59 Intake Total 3284.42 / 3284.42 1328.83 / 1328.83 Output Total 1175 / 1175 1000 / 1000 Balance 3284.42 / 3284.42 153.83 / 153.83 -1000 / -1000 Lab / Micro Data Result Diagrams: 03/03/21 05:40 03/03/21 05:40 Micro: Microbiology 02/17/21 14:08 Swab (Method) Nasal Screen MRSA/MSSA - Final Physical Exam Narrative Exam of patient lying in bed sleeping. Patient was easy to awake and was alert and oriented. Patient no respiratory distress, speaking in full sentences. Patient forage motion the upper extremities with good muscle tone and strength. Patient's right knee was cool to touch nonerythematous. The dressing was clean dry intact. There is no calf tenderness or signs or symptoms of DVT. Patient has good plantar flexion dorsiflexion of the foot without pain. Neurovascular is otherwise intact. I reviewed and noted in the chart the labs and vitals. 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 Continue all pain medications as prescribed 2. Continue physical therapy, weight-bear as tolerated with walker 3. Aspirin 81 mg 1 p.o. every 12 hours x30 days for postop DVT prophylaxis 4. Encourage incentive spirometry 5. Discharge to ECF when cleared with insurance 6. Follow-up as scheduled, see pink sheet
[2021-03-04 08:00] VITALS: BP 112/64; PULSE 80; RESP 18; TEMP 37.3; O2SAT 100
--- NOTE | 2021-03-04 08:02 | DCINST_ITS ---
Discharge Instructions Diet Discharge Diet: No restrictions Activity Discharge Activity: May Not Drive, May Shower and Use Walker May shower in (days): 3 May resume sexual activity in: No Restrictions Ice area for (Minutes): 30 (every hour while awake.) Weight Bearing Status: Weight bearing as tolerated Keep extremity elevated above heart level: Operative Extremity Dressing / Incision Call your doctor if your incision/area has: Continuous Slow Oozing, Sudden Increased Bleeding, Increased Pain/ Swelling, Increased Redness and Foul Smelling Discharge Call your doctor if you observe: Fever of 101 or Higher, Coldness, Increased Pain, Numbness or Tingling, Change in Color, Shortness of breath, Calf discomfort and Uncontrolled pain Change Dressing in: leave in place till F/U Remove Dressing in: leave in place till F/U Follow Up Care Please Follow Up With: Akshat Mabry PA-C When: Please call [phone] to schedule a follow up appointment. Test Results: Test results from this visit will be discussed in further detail at your follow-up appointment, if applicable. Discharge Plan Admission Admit Date/Time: 03/02/21 17:03 Primary Reason for Your Visit: Right total knee Attending Provider: Saleem Rider Primary Care Provider: Annabel Adan Discharge Orders/Prescriptions Prescriptions: New acetaminophen 500 mg Tablet 1,000 mg PO Q8 14 Days Qty: 84 RF: 0 aspirin 81 mg Tablet,Chewable 81 mg PO BIDCM 30 Days Qty: 60 RF: 0 oxycodone 5 mg Tablet 5 - 10 mg PO Q4H PRN PRN (Reason: Pain Score 4-10) 7 Days Qty: 84 RF: 0 sennosides-docusate sodium [Stool Softener-Stimulant Laxat] 8.6-50 mg Tablet 2 tab PO BID 7 Days Qty: 28 RF: 0 Continued multivitamin [Multiple Vitamins] 1 EACH tablet 1 ea PO DAILY RF: 0 atorvastatin 40 MG tablet 40 mg PO QHS RF: 0 tamsulosin [Flomax] 0.4 MG capsule 0.8 mg PO QHS RF: 0 ferrous sulfate [Iron (ferrous sulfate)] 325 MG tablet 325 mg PO DAILY RF: 0 sertraline [Zoloft] 25 MG tablet 50 mg PO BID RF: 0 metoprolol succinate 25 MG tablet 25 mg PO BID RF: 0 vitamin B complex 1 EACH capsule 1 ea PO DAILY RF: 0 cholecalciferol (vitamin D3) [Vitamin D3] 1,000 UNIT tablet 3,000 unit PO DAILY RF: 0 amlodipine-benazepril 1 EACH capsule 1 ea PO DAILY RF: 0 Referrals / Follow Up: Annabel Adan, [Primary Care Provider] - Disposition Disposition (needs filled in before D/C Order can be placed[facility]
[2021-03-04] MEDS: Lisinopril 10 MG Tablet PO ×2 (08:18→11:09)
[2021-03-04] MEDS: Multivitamins,Therapeutic Tablet 1 TABLET PO (08:19)
[2021-03-04] MEDS: Aspirin 81 MG TAB.CHEW PO ×2 (08:19→17:45)
[2021-03-04] MEDS: Cholecalciferol (VIT D3) 25 MCG TABLET (1,000 UNITS) 75 MCG PO (08:19)
--- NOTE | 2021-03-04 10:10 | CASEMGMT ---
Social Work Note BRE placed a call to [facility] and spoke with Jevon in admissions. Jevon confirms she received referral, they can accept pt, and she will submit for pre-cert. BRE informed Jevon that pt is medically cleared for discharge once pre-cert is obtained. Jevon states understanding. Plan: [facility] skilled pending pre-cert Fern Stephenson EARLY BREASTFEEDING CARE SPECIALIST, STRETCH MACHINE OPERATOR
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
[2021-03-04 11:10] VITALS: PULSE 78
[2021-03-04] MEDS: Metoprolol(XL)Succ 25 MG Tablet PO ×2 (11:10→22:37)
[2021-03-04] MEDS: amLODIPine 5 MG Tablet PO (11:10)
[2021-03-04] MEDS: Senna/Docusate Sodium 1 Tablet 2 TABLET PO ×2 (11:10→22:34)
[2021-03-04] MEDS: Sertraline 50 MG Tablet PO ×2 (11:10→22:31)
[2021-03-04] MEDS: Ferrous Sulfate 325 MG Tablet PO (11:11)
--- NOTE | 2021-03-04 11:29 | CASEMGMT ---
Addendum entered by Fern Stephenson 03/04/21 13:34: BRE placed another call to [facility] and spoke with Kassandra. If approval from the St[employer]/Board of DD is approved tomorrow, pt can discharge to SNF tomorrow. SW to update covering BRE for tomorrow to check HENS website. Addendum entered by Fern Stephenson 03/04/21 13:27: SW received call from Kassandra at [facility] stating they received insurance approval for pt to admit to SNF tomorrow. BRE informed Kassandra that SW completed PAS/RR and pt did trip the screen so this worker has to wait for approval from the State/Board of DD before pt can discharge. Kassandra states she will update [employer]. BRE spoke with pt's Olivia and updated her that insurance approval was obtained, however due to pt's Mental Health History this worker has to get approval from the State before pt can discharge. BRE informed Olivia that State approval will not be obtained today, not sure when it will be obtained due to the Holiday weekend. Olivia states understanding. Plan: [facility] skilled under PAS/RR level of care. Pt will also need approval from the State and Board of DD. Pt cannot discharge before approval from the State and Board of DD is received. Original Note: Social Work Note SW completed PAS/RR. Pt tripped the screen due to pt's Mental Health History and Pt becoming deaf before the age of 24. Pt will need approval from the state and Board of DD before pt can discharge to SNF. Plan: [facility] pending pre-cert. Pt will also need approval from the State and Board of DD. Pt cannot discharge before approval from the State and Board of DD is received. Fern Stephenson SUPERINTENDENT GENERATING PLANT, PRINTING TECHNICIAN
[2021-03-04 14:21] VITALS: BP 151/66; PULSE 97; RESP 18; TEMP 36.9; O2SAT 100
--- NOTE | 2021-03-04 15:28 | CASEMGMT ---
Social Work Note SW placed a call to [facility] R[facility]EIRO and updated him that pt has to remain at [facility] until approval from the State is obtained. Plan: [facility] pending approval from [facility]/Board of DD Fern Stephenson CUFFER, MERCHANDISE COLLECTOR
--- NOTE | 2021-03-04 16:30 | CASEMGMT ---
Social Work Note SW received call from Karla at [facility]. Karla with questions for this worker regarding pt and also stating she needs to talk to pt to complete the pt part of the assessment. SW answered Karla questions. Karla also states she needs pt's PT/OT and medication list uploaded to [facility] system. BRE uploaded PT/OT and pt's mediation list to [facility]. SW in to speak with pt. BRE informed pt that Ankur is on the phone and Karla needs to speak to pt. BRE provided pt with this worker's phone. Pt completed assessment with Karla. BRE reviewed [facility] website. The Board of has ruled out pt, so now approval from [facility] is only needed. BRE spoke with Kassandra at [facility]. If approval from [facility] is obtained tomorrow, pt can discharge to SNF tomorrow. Plan: [facility] pending approval from [facility] Fern Stephenson CRUDE OIL TREATER, SCRAP CUTTER
[2021-03-04 19:34] VITALS: BP 115/55; PULSE 89; RESP 16; TEMP 37.2; O2SAT 97
[2021-03-04] MEDS: Atorvastatin Calcium 40 MG Tablet PO (22:30)
[2021-03-04] MEDS: Tamsulosin HCl 0.4 MG Capsule 0.8 MG PO (22:31)
[2021-03-04 22:37] VITALS: BP 152/63; PULSE 89
[2021-03-05] VITALS (7 sets, daily range): BP systolic 115–152; BP diastolic 63–75; PULSE 70–89; RESP 16–18; TEMP 36.8–37.1; O2SAT 96–99
[2021-03-05] MEDS: oxyCODONE 5 MG Tablet PO ×4 (03:39→20:52)
[2021-03-05] MEDS: Acetaminophen 500 MG Tablet 1000 MG PO ×3 (05:29→20:52)
[2021-03-05] MEDS: Aspirin 81 MG TAB.CHEW PO ×2 (07:36→17:22)
--- NOTE | 2021-03-05 07:42 | PCM.PN.ORT ---
Subjective Subjective Doing well . C/o pain as expected around knee. Awaiting d/c to ECF. Objective Data Objective Data Vital Signs: Vital Signs Temp Pulse Resp BP Pulse Ox 98.2 F 74 18 130/64 H 98 03/05/21 07:37 03/05/21 07:37 03/05/21 07:37 03/05/21 07:37 03/05/21 07:37 Oxygen Flow Rate (L/min) 4 Oxygen Delivery Method Room Air Weight: 233 lb 11.04 oz Body Mass Index (BMI) 34.4 Intake & Output: Intake and Output for Last 24 Hours 03/03/21 03/04/21 03/05/21 23:59 23:59 23:59 Intake Total 1328.83 / 1328.83 1900 / 1900 480 / 480 Output Total 1175 / 1175 1700 / 1700 300 / 300 Balance 153.83 / 153.83 200 / 200 180 / 180 Lab / Micro Data Result Diagrams: 03/03/21 05:40 03/03/21 05:40 Micro: Microbiology 02/17/21 14:08 Swab (Method) Nasal Screen MRSA/MSSA - Final Physical Exam Const alert, oriented x3 and no apparent distress General Appearance: cooperative Extremity normal capillary refill and no clubbing, cyanosis or edema Extremity Narrative: Negative Yuri's sign. Incision C/D/I Assessment & Plan Assessment/Plan (1) Status post total right knee replacement not using cement: PLAN: Continue PT. To ECF when bed available.
[2021-03-05] MEDS: amLODIPine 5 MG Tablet PO (07:51)
[2021-03-05] MEDS: Cholecalciferol (VIT D3) 25 MCG TABLET (1,000 UNITS) 75 MCG PO (07:51)
[2021-03-05] MEDS: Senna/Docusate Sodium 1 Tablet 2 TABLET PO ×2 (07:51→20:53)
[2021-03-05] MEDS: Sertraline 50 MG Tablet PO ×2 (07:52→20:54)
[2021-03-05] MEDS: Multivitamins,Therapeutic Tablet 1 TABLET PO (07:52)
[2021-03-05] MEDS: Metoprolol(XL)Succ 25 MG Tablet PO ×2 (07:52→20:52)
--- NOTE | 2021-03-05 10:17 | CM.ED ---
Addendum entered by Jennifer Oh 03/05/21 12:34: BRE checked PASSR at 12:34pm on 03/05/21. PASSR states that [facility] status is referred. Thus, patient's PASSR is not complete and patient will need to remain in hospital until this status returns complete. Jennifer LOVE Original Note: BRE Note: BRE reviewed PASSR on HENS. At 9:15am when this law writer reviewed HENS. The level 2 assessment was still under review. Plan: Continue to be available if needed Jennifer LOVE
[2021-03-05] MEDS: Ferrous Sulfate 325 MG Tablet PO (12:35)
--- NOTE | 2021-03-05 14:27 | CM.ED ---
SYDNIE Note public affairs manager called this creative services writer. Patient's would like to speak to SYDNIE. Sydnie met with patient and his . Their daughter, Fern Chu, stated she has contacts so she will call [facility] and the contacts to see about getting approval for placement. SYDNIE advised this creative services writer had checked 2x today and as of the most recent time approval was not back. Plan: SNF at discharge Jennifer Rose
--- NOTE | 2021-03-05 16:43 | CM.ED ---
BRE Note SW reviewed PASSR for patient this morning at 9:15am. Review is still pending. BRE reviewed Passr at 12:35pm. Review is still pending. SW was called by cardiology rn Sonya who stated that patients family wanted to speak to social service agency director. BRE met with patient and spoke on the phone with patient's daughter. Daughter, Fern, said that she will call [facility] to have her father approved for placement today. Patient's said that Fern received voice mail when she called [facility] stating that they will call back within 6 hours. Patient's said that patient's daughter works with attorneys on elder law and has lots of contacts as she is an doctor. Fern, the daughter, advised that this situation would be resolved before 3:30pm and the current time was 2:00pm. BRE received voice mail from patient's however, this narrative writer was responding to a code so this narrative writer was unavailable. BRE called Kassandra at [facility]. She said that she spoke to her social service agency director and the social service agency director said it's ok to send the patient there. BRE noted that this narrative writer is looking at the screen and patient' MH screen is marked referred but not complete thus patient can not leave the institution. BRE spoke with Ariana Duval who verified patient can't move to a facility without the PASSR completed. SW checked PASSR at 4:00. No return of patient's screen. SW called [facility] and left voice mail to call. SW spoke to patient and his . is concerned that they will lose bed at SNF. and patient said that patient will need to have insurance review again if he is not coming today. BRE indicated that patient has not received the review so we, as a hospital system, can not send him. asked why [facility] doesn't have the level 2 review information and SW explained that it was submitted to them for review by BRE earlier this week. said why did my daughter get to talk to someone at [facility]? and SW reminded her that she told this narrative writer earlier that daughter had gotten voice mail that calls would be returned in 6 hours. Patient's said this is not acceptable.. we have to figure out another way.. he is leaving today. (cardiology rn Sonya was in the room with this narrative writer when this conversation occurred). BRE called Kassandra at [facility]. She was advised that we could not move patient to SNF. Kassandra said that she is on the phone with and reminded that patient had a [facility] Review when he previously was admitted. Jennifer LOVE
[2021-03-05] MEDS: 0.9% Saline Lock 10 ML Syringe IV (17:25)
--- NOTE | 2021-03-05 19:47 | CM.ED ---
BRE Note BRE called [facility] 3 x and left voice mail requesting a call back. BRE sent email to [facility] inquiring about status of patient. Bre met with patient. Patient said that he sent his home. BRE explained that at this time the Level 2 assessment has not been completed so patient can not be discharged to SNF. Patient was understanding and said sometimes life works out like that. BRE explained that the [facility] program review is a process. BRE will update BRE Shirley regarding today's interaction. Olivia's number [phone] and Fern (daughter) [phone] Left voice mail for BRE Shirley Plan: SNF at discharge Jennifer LOVE
[2021-03-05] MEDS: Tamsulosin HCl 0.4 MG Capsule 0.8 MG PO (20:53)
[2021-03-05] MEDS: Atorvastatin Calcium 40 MG Tablet PO (20:54)
--- NOTE | 2021-03-05 21:20 | CM.ED ---
SW Note At 9:20pm this tag writer checked HENS and [facility] is listed as Referred but not completed or ruled out. Board of DD is ruled out. Jennifer LOVE
[2021-03-06] MEDS: oxyCODONE 5 MG Tablet PO ×4 (00:52→20:24)
[2021-03-06 02:54] VITALS: BP 140/77; PULSE 83; RESP 16; TEMP 36.8; O2SAT 96
[2021-03-06] MEDS: Acetaminophen 500 MG Tablet 1000 MG PO ×3 (06:15→22:26)
[2021-03-06] MEDS: Aspirin 81 MG TAB.CHEW PO ×2 (08:06→17:56)
[2021-03-06] MEDS: Cholecalciferol (VIT D3) 25 MCG TABLET (1,000 UNITS) 75 MCG PO (08:06)
[2021-03-06] MEDS: Multivitamins,Therapeutic Tablet 1 TABLET PO (08:06)
--- NOTE | 2021-03-06 08:14 | PCM.PN.ORT ---
Subjective Subjective Patient doing better. Up eating breakfast. Still with right knee pain with weight bearing. Objective Data Objective Data Vital Signs: Vital Signs Temp Pulse Resp BP Pulse Ox 98.3 F 83 16 140/77 H 96 03/06/21 02:54 03/06/21 02:54 03/06/21 02:54 03/06/21 02:54 03/06/21 02:54 Oxygen Flow Rate (L/min) 4 Oxygen Delivery Method Nasal Cannula Weight: 233 lb 11.04 oz Body Mass Index (BMI) 34.4 Intake & Output: Intake and Output for Last 24 Hours 03/04/21 03/05/21 03/06/21 23:59 23:59 23:59 Intake Total 1900 / 1900 2130 / 2130 Output Total 1700 / 1700 1550 / 2500 950 / 950 Balance 200 / 200 580 / -370 -950 / -950 Lab / Micro Data Result Diagrams: 03/03/21 05:40 03/03/21 05:40 Micro: Microbiology 02/17/21 14:08 Swab (Method) Nasal Screen MRSA/MSSA - Final Physical Exam Const alert, oriented x3 and no apparent distress General Appearance: cooperative Extremity normal capillary refill, no clubbing, cyanosis or edema and no calf tenderness Right Lower Extremity: knee joint inspection (Incision C/D/I) Neuro no focal motor deficits and no sensory deficits noted Assessment & Plan Assessment/Plan (1) Status post total right knee replacement not using cement: PLAN: Continue PT. To ECF when bed available. Probably Monday.
[2021-03-06 08:56] VITALS: BP 130/62; PULSE 72; RESP 16; TEMP 36.5; O2SAT 96
[2021-03-06] MEDS: Lisinopril 10 MG Tablet PO (10:52)
[2021-03-06 10:53] VITALS: PULSE 72
[2021-03-06] MEDS: Metoprolol(XL)Succ 25 MG Tablet PO ×2 (10:53→22:26)
[2021-03-06] MEDS: amLODIPine 5 MG Tablet PO (10:53)
[2021-03-06] MEDS: Senna/Docusate Sodium 1 Tablet 2 TABLET PO ×2 (10:53→22:27)
[2021-03-06] MEDS: Sertraline 50 MG Tablet PO ×2 (10:54→22:28)
[2021-03-06] MEDS: Ferrous Sulfate 325 MG Tablet PO (13:36)
[2021-03-06 15:08] VITALS: BP 104/57; PULSE 90; RESP 16; TEMP 37; O2SAT 99
[2021-03-06 22:16] VITALS: BP 143/62; PULSE 86; RESP 18; TEMP 36.8; O2SAT 100
[2021-03-06 22:26] VITALS: BP 143/62; PULSE 86
[2021-03-06] MEDS: Tamsulosin HCl 0.4 MG Capsule 0.8 MG PO (22:28)
[2021-03-06] MEDS: Atorvastatin Calcium 40 MG Tablet PO (22:28)
[2021-03-06] MEDS: 0.9% Saline Lock 10 ML Syringe IV (22:37)
[2021-03-07 03:54] VITALS: BP 144/75; PULSE 85; RESP 16; TEMP 37; O2SAT 96
[2021-03-07] MEDS: oxyCODONE 5 MG Tablet PO ×4 (04:09→18:50)
[2021-03-07] MEDS: Acetaminophen 500 MG Tablet 1000 MG PO ×3 (06:29→21:11)
[2021-03-07 08:10] VITALS: BP 122/60; PULSE 80; RESP 18; TEMP 36.8; O2SAT 97
[2021-03-07] MEDS: Aspirin 81 MG TAB.CHEW PO ×2 (08:12→16:00)
[2021-03-07] MEDS: Cholecalciferol (VIT D3) 25 MCG TABLET (1,000 UNITS) 75 MCG PO (08:12)
[2021-03-07] MEDS: Multivitamins,Therapeutic Tablet 1 TABLET PO (08:12)
[2021-03-07 08:13] VITALS: PULSE 80
[2021-03-07] MEDS: Metoprolol(XL)Succ 25 MG Tablet PO ×2 (08:13→21:12)
[2021-03-07] MEDS: Senna/Docusate Sodium 1 Tablet 2 TABLET PO (08:13)
[2021-03-07] MEDS: Sertraline 50 MG Tablet PO ×2 (08:14→21:12)
--- NOTE | 2021-03-07 11:12 | PN.ORTHO_ITS ---
Subjective Subjective Patient seen and examined. Denies any new complaints. No bowel movement since surgery, positive flatus. Denies nausea, vomiting, chest pain or shortness of breath, fevers or chills. Awaiting placement closer to [place], likely tomorrow given the holiday. Objective Data Objective Data Vital Signs: Vital Signs Temp Pulse Resp BP Pulse Ox 98.3 F 80 18 122/60 H 97 03/07/21 08:10 03/07/21 08:13 03/07/21 08:10 03/07/21 08:10 03/07/21 08:10 Oxygen Flow Rate (L/min) 4 Oxygen Delivery Method Room Air Weight: 233 lb 11.04 oz Body Mass Index (BMI) 34.4 Intake & Output: Intake and Output for Last 24 Hours 03/05/21 03/06/21 03/07/21 23:59 23:59 23:59 Intake Total 2130 / 2130 800 / 800 Output Total 1550 / 2500 1250 / 1250 550 / 550 Balance 580 / -370 -450 / -450 -550 / -550 Lab / Micro Data Result Diagrams: 03/03/21 05:40 03/03/21 05:40 Micro: Microbiology 02/17/21 14:08 Swab (Method) Nasal Screen MRSA/MSSA - Final Physical Exam Narrative General - A&Ox3, NAD. VSS/AF Right lower extremity -incisional dressing C/D/I. SILT Sural, Saphenous, SPN, DPN, Tibial N. distributions. DP, PT 2+. BCR. DF, PF, EHL 5/5. No calf TTP. Assessment & Plan Assessment/Plan (1) Status post total right knee replacement not using cement: PLAN: POD#5 s/p right TKA - Pain control - PT/OT - DVT PPX -as ordered, SCDs, mobilization - Case management - D/C planning - Anticipate discharge to nursing facility tomorrow
[2021-03-07] MEDS: Ferrous Sulfate 325 MG Tablet PO (11:48)
[2021-03-07] MEDS: amLODIPine 5 MG Tablet PO (11:48)
[2021-03-07] MEDS: Lisinopril 10 MG Tablet PO (11:48)
[2021-03-07 16:00] VITALS: BP 122/76; PULSE 83; RESP 18; TEMP 36.7; O2SAT 98
[2021-03-07 21:08] VITALS: BP 141/83; PULSE 85; RESP 20; TEMP 36.7; O2SAT 97
[2021-03-07] MEDS: 0.9% Saline Lock 10 ML Syringe IV (21:10)
[2021-03-07 21:12] VITALS: BP 141/83; PULSE 85
[2021-03-07] MEDS: Tamsulosin HCl 0.4 MG Capsule 0.8 MG PO (21:12)
[2021-03-07] MEDS: Atorvastatin Calcium 40 MG Tablet PO (21:13)
[2021-03-08 01:47] VITALS: BP 127/67; PULSE 78; RESP 18; TEMP 36.6; O2SAT 97
[2021-03-08] MEDS: Acetaminophen 500 MG Tablet 1000 MG PO ×2 (07:05→13:23)
[2021-03-08] MEDS: oxyCODONE 5 MG Tablet PO ×2 (07:05→13:22)
[2021-03-08 07:07] VITALS: BP 169/77; PULSE 81; RESP 18; TEMP 36.6; O2SAT 98
[2021-03-08 07:41] VITALS: BP 114/58; PULSE 74; RESP 18; TEMP 36.9; O2SAT 98
[2021-03-08] MEDS: Multivitamins,Therapeutic Tablet 1 TABLET PO (07:43)
[2021-03-08] MEDS: Aspirin 81 MG TAB.CHEW PO (07:43)
[2021-03-08] MEDS: Cholecalciferol (VIT D3) 25 MCG TABLET (1,000 UNITS) 75 MCG PO (07:43)
--- NOTE | 2021-03-08 09:23 | CASEMGMT ---
Addendum entered by Fern Stephenson 03/08/21 10:22: BRE received call from Kassandra at [facility]. BRE updated Kassandra that approval from [employer] has been obtained, asked if she needs to get pre-cert again. Kassandra states that all she had to do was update pt's insurance and she did that, so pt can admit to [facility] today. BRE updated Kassandra that pt is medically ready for discharge today. Kassandra states she has been speaking to pt's daughter Fern who had mentioned pt's transporting pt. SW will confirm this. BRE updated RN. BRE placed a call to Physician's office and updated clinical human services assistant that pt will discharge to SNF today. Plan: [facility] skilled today under PAS/RR level of care. Original Note: Social Work Note SW received approval from [facility] for [facility] to admit to SN[facility]. BRE placed a call to [facility] SNF and asked to speak to Kassandra. Kassandra is not available at this time, BRE left message for Kassandra to call this worker back. Approval from [facility] has been obtained but pt will likely need pre-cert again from pt's insurance. Plan: [facility] SNF pending pre-cert Fern Stephenson RIB BENDER, RESIDENTIAL GLAZIER
[2021-03-08] MEDS: amLODIPine 5 MG Tablet PO (10:46)
[2021-03-08] MEDS: Senna/Docusate Sodium 1 Tablet 2 TABLET PO (10:46)
[2021-03-08] MEDS: Sertraline 50 MG Tablet PO (10:46)
[2021-03-08] MEDS: Lisinopril 10 MG Tablet PO (10:46)
[2021-03-08 10:47] VITALS: PULSE 74
[2021-03-08] MEDS: Metoprolol(XL)Succ 25 MG Tablet PO (10:47)
--- NOTE | 2021-03-08 11:55 | CASEMGMT ---
Addendum entered by Fern Stephenson 03/08/21 12:40: SW in to speak with pt and pt's Olivia present in room. Pt currently in bathroom. SW updated Olivia that approval from the state has been approved and [facility] is stating pt can admit today. Olivia states understanding, confirms she will be transporting pt to SNF. Addendum entered by Fern Stephenson 03/08/21 12:22: SW received fax confirmation that discharge paperwork was finally sent to [facility]. SW Faxed transfer to extended care, signed medication list, PAS/RR, PAS/RR Results, COVID tool and COVID test to [facility]. Original in SNF Folder and copy on pt's chart. Original Note: Social Work Note SW has tried multiple times to fax discharge paperwork to [facility] and every time, the fax is not going through. BRE placed a call to [facility] and asked for additional fax number, no additional fax number provided. BRE spoke with RN. Pt's is on way to [facility]. SW to speak with pt and pt's once pt's arrives to [facility]. BRE will continue to attempt to fax discharge paperwork to [facility]. Fern Stephenson PATIENT CARE DIRECTOR, INFORMATION SYSTEMS SECURITY DEVELOPER
[2021-03-08] MEDS: Ferrous Sulfate 325 MG Tablet PO (13:24)
--- NOTE | 2021-03-08 13:59 | NURSING ---
Pt mariela davenport removed and noted he has some redness on operative leg. Redness has receded and pt is encouraged to elevate legs. Dr. Rider up to see to see pt and he notified.
[2021-03-08 14:54] VITALS: BP 122/64; PULSE 70; RESP 18; TEMP 37; O2SAT 98
--- NOTE | 2021-03-08 15:04 | CASEMGMT ---
Social Work Note Pt is getting ready to leave [facility]. BRE placed a call to Kassandra at [facility] and updated her. BRE also updated Kassandra that there is a script for Oxy in pt's SNF folder that will be coming with pt. Kassandra asked about pt's CPAP machine. RBE reviewed chart. Pt has home CPAP machine, will be coming with own CPAP machine. Kassandra states understanding. Plan: [facility] SNF skilled under PAS/RR level of care with pt's transporting pt via private vehicle. Fern Stephenson ENGINEERING MANAGER, TOWN PLANNER
--- NOTE | 2021-03-26 08:37 | DS.PCM_ITS ---
Providers Date of Admission: 03/02/21 Primary Care Physician: Dr. Annabel Adan DO Reason For Visit: RT TOTAL KNEE W EMILIA Diagnosis Discharge Diagnosis (1) Status post total right knee replacement not using cement: Status: Acute Code(s): Z96.651 - Presence of right artificial knee joint Medications at Discharge Home Medications atorvastatin 40 mg PO QHS 11/06/17 cholecalciferol (vitamin D3) [Vitamin D3] 3,000 unit PO DAILY 11/06/17 ferrous sulfate [Iron (ferrous sulfate)] 325 mg PO DAILY 11/06/17 metoprolol succinate 25 mg PO BID 11/06/17 multivitamin [Multiple Vitamins] 1 ea PO DAILY 11/06/17 sertraline [Zoloft] 50 mg PO BID 11/06/17 tamsulosin [Flomax] 0.8 mg PO QHS 11/06/17 vitamin B complex 1 ea PO DAILY 11/06/17 amlodipine-benazepril 1 ea PO DAILY 04/10/18 acetaminophen 1,000 mg PO Q8 14 Days #84 tab 03/04/21 aspirin 81 mg PO BIDCM 30 Days #60 tab 03/04/21 oxycodone 5 - 10 mg PO Q4H PRN PRN 7 Days #84 tab 03/04/21 sennosides-docusate sodium [Stool Softener-Stimulant Laxat] 2 tab PO BID 7 Days #28 tab 03/04/21 Hospital Course Operations total knee replacement Summary of Care Provided Minutes Spent on Discharge: 30 Hospital Course: Patient remained stable postoperatively. Patient's pain was well maintained. Patient was unable to return home as he lives by himself and no one to care for him. Patient's stay in his hospital was upon awaiting approval from his insurance to be admitted to an [facility] for postoperative care. Physical Exam Narrative Patient was alert oriented. No respiratory distress, speaking in full sentences. Patient had good motion of the upper extremities with good muscle tone and strength. Full range of motion of the bilateral hips. The right knee was cool to touch not erythematous with incision was clean dry and intact. No calf tenderness neurovascular patient was otherwise intact. patient was also afebrile. Const oriented x3 General Appearance: cooperative Orientation / Consciousness: awake, oriented to person, oriented to place and oriented to time Exam Limitations: no limitations HEENT normocephalic Head and Scalp: normal to inspection Face and Sinus: normal facial exam Eyes PERRL Pupil: PERRL Neck full ROM General: normal visual inspection Resp normal respiratory effort, normal air movement, no retractions and no use of accessory muscles Effort and Inspection: able to speak in complete sentences Neuro oriented x3 and CN's II-XII intact bilaterally Weight / BMI Weight Weight: 106 kg Body Mass Index (BMI) 34.4 ABG / Lab / Microbiology Data Result Diagrams: 03/03/21 05:40 03/03/21 05:40 Microbiology: Microbiology 03/08/21 10:30 Nasal Secretion SARS-CoV-2 Antigen (Rapid) - Final 02/17/21 14:08 Swab (Method) Nasal Screen MRSA/MSSA - Final D/C Instructions Discharge Diet: No restrictions May shower in (days): 3 May resume sexual activity in: No Restrictions Ice area for (Minutes): 30 (every hour while awake.) Weight Bearing Status: Weight bearing as tolerated Keep extremity elevated above heart level: Operative Extremity Call your doctor if your incision/area has: Continuous Slow Oozing, Sudden Increased Bleeding, Increased Pain/ Swelling, Increased Redness and Foul Smelling Discharge Call your doctor if you observe: Fever of 101 or Higher, Coldness, Increased Pain, Numbness or Tingling, Change in Color, Shortness of breath, Calf discomf ort and Uncontrolled pain Please Follow Up With: Akshat Mabry PA-C When: Please call [phone] to schedule a follow up appointment. Meaningful Use Info Meaningful Use Diagnoses (Choose all that apply): None applicable Discharge Plan Admission Admit Date/Time: 03/02/21 17:03 Primary Reason for Your Visit: Right total knee Attending Provider: Saleem Rider Primary Care Provider: Annabel Adan Discharge Orders/Prescriptions Prescriptions: New acetaminophen 500 mg Tablet 1,000 mg PO Q8 14 Days Qty: 84 RF: 0 aspirin 81 mg Tablet,Chewable 81 mg PO BIDCM 30 Days Qty: 60 RF: 0 oxycodone 5 mg Tablet 5 - 10 mg PO Q4H PRN PRN (Reason: Pain Score 4-10) 7 Days Qty: 84 RF: 0 sennosides-docusate sodium [Stool Softener-Stimulant Laxat] 8.6-50 mg Tablet 2 tab PO BID 7 Days Qty: 28 RF: 0 Continued multivitamin [Multiple Vitamins] 1 EACH tablet 1 ea PO DAILY RF: 0 atorvastatin 40 MG tablet 40 mg PO QHS RF: 0 tamsulosin [Flomax] 0.4 MG capsule 0.8 mg PO QHS RF: 0 ferrous sulfate [Iron (ferrous sulfate)] 325 MG tablet 325 mg PO DAILY RF: 0 sertraline [Zoloft] 25 MG tablet 50 mg PO BID RF: 0 metoprolol succinate 25 MG tablet 25 mg PO BID RF: 0 vitamin B complex 1 EACH capsule 1 ea PO DAILY RF: 0 cholecalciferol (vitamin D3) [Vitamin D3] 1,000 UNIT tablet 3,000 unit PO DAILY RF: 0 amlodipine-benazepril 1 EACH capsule 1 ea PO DAILY RF: 0 Referrals / Follow Up: Annabel Adan DO [Primary Care Provider] - Disposition Disposition (needs filled in before D/C Order can be placed): [facility]
== END 2021-03-08 15:45 | disposition skilled nursing facility (03) ==
LOC: SDC 03-03 10:25 → MS3 03-03 10:25
PROVIDERS: Anesthesiology; Admitting Provider Orthopaedic Surgery; PCP Internal Medicine; Referring Provider Orthopaedic Surgery; Visit Provider Orthopaedic Surgery
PROC: 0SRC0JZ Replacement of Right Knee Joint with Synthetic Substitute, Open Approach (ICD-10-PCS; CPT 27447; principal; 2021-03-02 12:50)
DX: M17.11 Unilateral primary osteoarthritis, right knee (principal); Z86.718 Personal history of other venous thrombosis and embolism; F41.9 Anxiety disorder, unspecified; F32.A Depression, unspecified; E78.00 Pure hypercholesterolemia, unspecified; I10 Essential (primary) hypertension; Z79.899 Other long term (current) drug therapy; G47.30 Sleep apnea, unspecified; H91.90 Unspecified hearing loss, unspecified ear; Z79.82 Long term (current) use of aspirin; Z87.891 Personal history of nicotine dependence
CPT/HCPCS: 64447; S2900; 27447; 36415; 73560; 80048; 80076; 82962; 83036; 83735; 85027; 85610; 85730; 87081; 87426; 88305; 88311; 93005; 96365; 96366; 97110; 97116; 97162; 97166; 97530; 97535; 99218; 99251; C1776; J7050; J7120; A4216; G0378; G0463

== ENCOUNTER → 2021-09-17 | Outpatient (CLI) | payer OTHER, SELFPAY ==
--- NOTE | 2021-09-17 10:37 | VDLE_ITS ---
Reason For Study: LEG SWELLING RIGHT LEFT GSV is normal. CFV is compressible, spontaneous, phasic, CFV is compressible, spontaneous, phasic, competent, and demonstrates normal competent and demonstrates normal augmentation. augmentation. FV is compressible, spontaneous, phasic, competent and demonstrates normal augmentation. POP V is compressible, spontaneous, phasic, competent and demonstrates normal augmentation. T/P Trunk is compressible. PTV is compressible. RT PerV is compressible. Procedure This is a venous duplex using B-mode, color flow and spectral Doppler. Exam performed in department. A preliminary report was called and/or faxed to Dr. Adan. VL/Venous Duplex US, Unilateral Interpretation Summary Deep veins of the right lower extremity are patent and compressible segmentally . There is no evidence of right lower extremity deep vein thrombosis. Valvular competence alberto ears intact within the proximal deep venous system on the right . The right great saphenous vein a ppears patent and compressible segmentally. Ordering Physician: Annabel Adan Referring Physician: Annabel Adan Performed By: Saleem Arceo
== END | disposition home or self-care (01) ==
LOC: CVS 10:36
PROVIDERS: PCP Internal Medicine; Referring Provider Internal Medicine; Visit Provider Internal Medicine
DX: M79.89 Other specified soft tissue disorders (principal)
CPT/HCPCS: 93971

== ENCOUNTER → 2022-03-31 | Outpatient (CLI) | payer OTHER, SELFPAY ==
--- NOTE | 2022-03-31 09:07 | CDU_ITS ---
Reason For Study: Bilateral carotid stenosis Rt. Velocities/BP Lt. Velocities/BP Prox CCA 113.3/17.6 cm/sec. Prox CCA 110.1/22.5 cm/sec. Mid CCA 113.3/7.6 cm/sec. Mid CCA 112/22.5 cm/sec. Dist CCA 98.6/17.6 cm/sec. Dist CCA 88.2/17 cm/sec. Prox ICA 99.8/18.8 cm/sec. Prox ICA 66.7/20 cm/sec. Mid ICA 69.1/20 cm/sec. Mid ICA 77.7/24.9 cm/sec. Dist ICA 58.1/17.6 cm/sec. Dist ICA 55.6/16.3 cm/sec. Rt. ICA/CCA = 0.88. Lt. ICA/CCA = 0.71. Prox ECA 101.1/11.4 cm/sec. Prox ECA 115.6/11.5 cm/sec. Rt. Vert. 39/6 cm/sec. Lt. Vert. 51.3/8.8 cm/sec. Right Extracranial There is intimal thickening but no significant atherosclerotic plaque noted in the right common carotid artery. There is homogeneous, smooth atherosclerotic plaque noted in the right internal carotid artery. There is intimal thickening but no significant atherosclerotic plaque noted in the right external carotid artery. Antegrade flow is noted in the right vertebral artery. Left Extracranial There is intimal thickening but no significant atherosclerotic plaque noted in the left common carotid artery. There is heterogeneous, irregular atherosclerotic plaque noted in the left internal carotid artery. There is intimal thickening but no significant atherosclerotic plaque noted in the left external carotid artery. Antegrade flow is noted in the left vertebral artery. Procedure Carotid Duplex 17964. This is a Carotid Duplex examination using B-mode, color flow and specral Doppler. Exam performed in department. VL/Carotid Duplex Ultrasound Interpretation Summary Mild (<50%) stenosis right extracranial internal carotid. Mild (<50%) stenosis left extracranial internal carotid. Flow within the vertebral arteries is antegrade bilaterally. Ordering Physician: Annabel Adan Referring Physician: Annabel Adan Performed By: Fern Gaxiola RVT
== END | disposition home or self-care (01) ==
LOC: CVS 09:06
PROVIDERS: PCP Internal Medicine; Referring Provider Internal Medicine; Visit Provider Internal Medicine
DX: I65.23 Occlusion and stenosis of bilateral carotid arteries (principal)
CPT/HCPCS: 93880

== ENCOUNTER → 2022-11-10 | Outpatient (CLI) | payer OTHER, SELFPAY ==
--- NOTE | 2022-11-14 17:00 | STRESSREP ---
Stress Test Report Date: 11/10/2022 Procedure: Exercise tolerance test/imaging study Indications: Shortness of breath Consent: Per the patient Procedure: The patient exercised on a Ernst protocol for 4 minutes and 10 seconds achieving a peak heart rate of 130 bpm (86% predicted maximal heart rate) with a peak blood pressure 178/78 mmHg and a peak MET capacity of 7 METs. The baseline ECG demonstrated normal sinus rhythm. The peak exercise ECG demonstrated no significant ischemic changes. EKG during recovery revealed no significant ischemic changes [There were no cardiac dysrhythmias pretest, during exercise, or recovery]. The functional capacity was considered normal for age. There was [no complaint of chest discomfort during exercise or recovery]. The examination was discontinued secondary to achieving target heart rate. Impression: 1. Technically adequate (percent predicted maximal heart rate greater than 85%) exercise tolerance test 2. Stress test is negative for exercise-induced EKG changes of ischemia 3. The test test is negative for exercise-induced chest pain 4. Functional capacity is normal for age 5. Nuclear images pending Myocardial perfusion imaging study: Technique: The patient was injected with 14.8 mCi of technetium 99m Cardiolite and subsequently rest SPECT Cardiolite nuclear imaging was obtained in the horizontal long, vertical long, and short axis views. The patient exercised on a Ernst protocol. Please see above for details. The patient was injected with 44.6 mCi of technetium 99m Cardiolite and subsequently stress SPECT Cardiolite nuclear imaging was obtained in the horizontal long, vertical long, and short axis views. A gated Cardiolite study at peak stress was obtained. Interpretation: Rest and stress SPECT Cardiolite nuclear imaging status post realignment, normalization, and attenuation correction, demonstrates normal uptake at rest. There is mild decrease in the uptake in the apical wall with stress suggestive of mild apical ischemia. The gated Cardiolite study demonstrates no regional wall motion abnormalities. The reported LVEF is 68%. Impression: 1. There is evidence of mild apical ischemia. 2. The gated Cardiolite study reports an LVEF of 68%. This note was generated with [employer] software. It may contain incorrect words, spelling, and punctuation that were not noted in checking the note before signing.
== END | disposition home or self-care (01) ==
LOC: CVS 07:09
PROVIDERS: PCP Internal Medicine; Referring Provider Internal Medicine; Visit Provider Internal Medicine
DX: I25.10 Atherosclerotic heart disease of native coronary artery without angina pectoris (principal)
CPT/HCPCS: 78452; 93017; A9500; A4216

== ENCOUNTER → 2023-05-03 | Outpatient (CLI) | payer OTHER, SELFPAY ==
--- NOTE | 2023-05-03 11:15 | CDU_ITS ---
Reason For Study: Carotid stenosis Rt. Velocities/BP Lt. Velocities/BP Prox CCA 98.1/16.8 cm/sec. Prox CCA 80.6/9.7 cm/sec. Mid CCA 100.3/20.1 cm/sec. Mid CCA 73/12.6 cm/sec. Dist CCA 79.5/17.9 cm/sec. Dist CCA 77.8/15.4 cm/sec. Prox ICA 49.5/11.4 cm/sec. Prox ICA 56.9/16.3 cm/sec. Mid ICA 54.4/11.4 cm/sec. Mid ICA 87.6/24.9 cm/sec. Dist ICA 55.6/15.1 cm/sec. Dist ICA 63/21.2 cm/sec. Rt. ICA/CCA = 0.57. Lt. ICA/CCA = 1.13. Prox ECA 107.2/11.4 cm/sec. Prox ECA 81.4/11.4 cm/sec. Rt. Vert. 35.2/9 cm/sec. Lt. Vert. 50.9/12.4 cm/sec. Right Extracranial There is intimal thickening but no significant atherosclerotic plaque noted in the right common carotid artery. There is homogeneous, smooth atherosclerotic plaque noted in the right internal carotid artery. There is intimal thickening but no significant atherosclerotic plaque noted in the right external carotid artery. Antegrade flow is noted in the right vertebral artery. Left Extracranial There is intimal thickening but no significant atherosclerotic plaque noted in the left common carotid artery. There is heterogeneous, irregular atherosclerotic plaque noted in the left internal carotid artery. There is intimal thickening but no significant atherosclerotic plaque noted in the left external carotid artery. Antegrade flow is noted in the left vertebral artery. Procedure Carotid Duplex 46017. This is a Carotid Duplex examination using B-mode, color flow and specral Doppler. Exam performed in department. VL/Carotid Duplex Ultrasound Interpretation Summary Minimal smooth plaque at the proximal right internal carotid artery with less t driver 50% stenosis Less than 50% stenosis right external carotid artery Minimal irregular plaque at the proximal left internal carotid artery with less than 50% stenosis Less than 50% stenosis left external carotid artery Patent and antegrade vertebral arteries bilaterally Ordering Physician: Annabel Adan Referring Physician: Annabel Adan Performed By: Fern Gaxiola RVT
== END | disposition home or self-care (01) ==
LOC: CVS 11:15
PROVIDERS: PCP Internal Medicine; Referring Provider Internal Medicine; Visit Provider Internal Medicine
DX: I65.23 Occlusion and stenosis of bilateral carotid arteries (principal)
CPT/HCPCS: 93880

== ENCOUNTER → 2023-08-02 | Outpatient (CLI) | payer OTHER, SELFPAY | END | disposition home or self-care (01) | LOC: PSN 12:08 | PROVIDERS: PCP Internal Medicine; Referring Provider Internal Medicine; Visit Provider Internal Medicine | DX: R00.2 Palpitations (principal) | CPT/HCPCS: 93225; 93226 ==

== ENCOUNTER → 2023-11-29 | Outpatient (CLI) | payer OTHER, SELFPAY ==
--- NOTE | 2023-11-29 13:02 | ECHOCS_ITS ---
Reason For Study: PALPITATIONS Procedure This was a 2D Doppler, Color Flow transthoracic echocardiogram. The study was technically difficult. Due to body habitus. Contrast injection was performed. Exam performed in department. Left Ventricle Normal size and thickness. The left ventricular ejection fraction is 65 %. Normal diastology for age. Right Ventricle Normal right ventricle. Atria The left atrium is mildly enlarged. Normal right atrium. Mitral Valve Normal mitral valve. Tricuspid Valve The tricuspid valve is not well visualized. Aortic Valve Trisinus/trileaflet aortic valve. Pulmonic Valve The pulmonic valve is not well visualized. Great Vessels Normal sized aortic root. Pericardium/Pleural No pericardial effusion. Medication 22 gauge I.V. with prn adaptor inserted into right arm. Diluted definity 4.0ml given slow IV push to enhance endocardial definition. MMode/2D Measurements & Calculations LVIDd: 4.4 cm IVSd: 0.94 cm Ao root diam: 3.6 cm LVIDs: 3.0 cm LVPWd: 1.0 cm RVDd: 3.3 cm FS: 30.1 % LAV(MOD-sp4): 91.9 ml LVAd ap4: 35.1 cm2 SV(MOD-sp4): 77.4 ml LVLd ap4: 8.3 cm EDV(MOD-sp4): 122.5 ml EDV(sp4-el): 126.1 ml LVAs ap4: 19.2 cm2 LVLs ap4: 7.0 cm ESV(MOD-sp4): 45.1 ml ESV(sp4-el): 45.0 ml EF(MOD-sp4): 63.2 % EF(sp4-el): 64.3 % SV(sp4-el): 81.2 ml LA A4 area: 28.1 cm2 RA A4 area: 16.6 cm2 TAPSE: 2.9 cm Time Measurements MV dec time: 0.21 sec Doppler Measurements & Calculations MV E max antonio: 61.0 cm/sec Lat Peak E' Antonio: 8.3 cm/sec Med Peak E' Antonio: 8.0 cm/sec MV A max antonoi: 75.7 cm/sec E/E' lat: 7.3 E/E' med: 7.6 MV E/A: 0.81 MV V2 max: 79.5 cm/sec MV P1/2t max antonio: 75.9 cm/sec Ao V2 max: 120.1 cm/sec MV max P.5 mmHg MV P1/2t: 67.2 msec Ao max P.8 mmHg MV V2 mean: 34.5 cm/sec Ao V2 mean: 78.4 cm/sec MV mean P.62 mmHg MV dec slope: 330.9 cm/sec2 Ao mean P.9 mmHg MV V2 VTI: 26.0 cm MVA(P1/2t): 3.3 cm2 Ao V2 VTI: 31.0 cm AV (velocity ratio): 0.84 LV V1 max: 115.6 cm/sec PA V2 max: 95.7 cm/sec LV V1 max P.4 mmHg PA V2 mean: 55.8 cm/sec LV V1 mean P.6 mmHg LV V1 mean: 74.8 cm/sec LV V1 VTI: 26.2 cm ECHO/Echo Complete W/ Contrast Interpretation Summary The study was technically difficult. The left ventricular ejection fraction is 65 %. The left atrium is mildly enlarged. Ordering Physician: Annabel Adan Referring Physician: Annabel Adan Performed By: Salma Russell, BRYANT, RVT
== END | disposition home or self-care (01) ==
LOC: CVS 13:00
PROVIDERS: PCP Internal Medicine; Referring Provider Internal Medicine; Visit Provider Internal Medicine
DX: R20.2 Paresthesia of skin (principal); R00.2 Palpitations
CPT/HCPCS: 93306; Q9957; A4216; C8929

== ENCOUNTER → 2023-12-13 | Outpatient (CLI) | payer OTHER, SELFPAY ==
--- NOTE | 2023-12-13 12:17 | NEURO_ITS ---
NCS and/or EMG Patient Report Ordering Doctor: Annabel Adan DATE OF SERVICE: 12/13/23 Kamar presents with numbness and tingling in both hands. Electrodiagnostic Findings: Median motor nerve demonstrates prolonged latency with normal amplitude and reduced conduction velocity. Left median motor nerve demonstrates prolonged latency with reduced amplitude and reduced conduction velocity. Right ulnar motor nerve demonstrates normal distal latency with borderline reduced amplitude. There is decrease in conduction velocity across the elbow. Left ulnar motor nerve demonstrates normal distal latency and amplitude with a decreased conduction velocity across the elbow. Prolonged median ulnar F?waves. Prolonged median sensory latency at the right wrist. Absent left median sensory response. Needle EMG testing was performed upper limbs all muscles tested showed no evidence of denervation with normal motor un it action potentials. Electrodiagnostic impression: This is an abnormal study. 1. Electrodiagnostic findings suggestive of bilateral median mononeuropathy. This is consistent with a moderate right carpal tunnel syndrome and a severe left carpal tunnel syndrome 2. Electrodiagnostic findings suggestive of bilateral ulnar neuropathy, consistent with a moderate bilateral cubital tunnel syndrome. 3. No electrodiagnostic evidence is noted for cervical radiculopathy Multi Select Codes Neurology Neurology Interp Codes: 31906-46 Musc test done w/n test comp (interp) (2) and 30885-00 Nrv cndj test 9-10 studies (interp)
== END | disposition home or self-care (01) ==
LOC: PSN 10:13
PROVIDERS: PCP Internal Medicine; Referring Provider Internal Medicine; Visit Provider Internal Medicine
DX: R20.2 Paresthesia of skin (principal)
CPT/HCPCS: 95886; 95911

== ENCOUNTER → 2024-04-17 | Outpatient (CLI) | payer MEDICARE, OTHER, SELFPAY ==
[2024-04-17 13:05] LABS: Potassium 4.9 mmol/L (3.5-5.1)
== END | disposition home or self-care (01) ==
LOC: LABSPEC 12:41
PROVIDERS: PCP Internal Medicine; Referring Provider Internal Medicine; Visit Provider Internal Medicine
DX: E87.5 Hyperkalemia (principal)
CPT/HCPCS: 84132

== ENCOUNTER → 2024-05-16 | Outpatient (CLI) | payer MEDICARE, OTHER, SELFPAY ==
--- NOTE | 2024-05-16 10:06 | CDU_ITS ---
Reason For Study Reason For Study: Stenosis Rt. Velocities/BP Lt. Velocities/BP Prox CCA 96.1/12.6 cm/sec. Prox CCA 117.4/24.3 cm/sec. Mid CCA 74.0/16.3 cm/sec. Mid CCA 88.2/20.6 cm/sec. Dist CCA 81.4/16.36 cm/sec. Dist CCA 59.7/17.9 cm/sec. Prox ICA 82.6/11.4 cm/sec. Prox ICA 67.9/20.0 cm/sec. Mid ICA 48.5/15.4 cm/sec. Mid ICA 55.3/17.9 cm/sec. Dist ICA 37.8/15.1 cm/sec. Dist ICA 47.5/18.2 cm/sec. Rt. ICA/CCA = 1.1. Lt. ICA/CCA = 0.8. Prox ECA 152.1/13.8 cm/sec. Prox ECA 93.7/10.2 cm/sec. Rt. Vert. 26.9/3.7 cm/sec. Lt. Vert. 31.5/3.8 cm/sec. Right Extracranial There is intimal thickening but no significant atherosclerotic plaque noted in the right common carotid artery. There is heterogeneous, irregular atherosclerotic plaque noted in the right internal carotid artery. There is intimal thickening but no significant atherosclerotic plaque noted in the right external carotid artery. Antegrade flow is noted in the right vertebral artery. Left Extracranial There is intimal thickening but no significant atherosclerotic plaque noted in the left common carotid artery. There is heterogeneous, irregular atherosclerotic plaque noted in the left internal carotid artery. There is heterogeneous, irregular atherosclerotic plaque noted in the left external carotid artery. Antegrade flow is noted in the left vertebral artery. Procedure Carotid Duplex [id number]. This is a Carotid Duplex examination using B-mode, color flow and specral Doppler. Exam performed in department. VL/Carotid Duplex Ultrasound Interpretation Summary Mild (<50%) stenosis right extracranial internal carotid. Mild (<50%) stenosis left extracranial internal carotid. Patent and antegrade vertebrals bilaterally. Ordering Physician: Annabel Adan Referring Physician: Annabel Adan Performed By: Fern Gaxiola RVT and Student
== END | disposition home or self-care (01) ==
LOC: CVS 10:05
PROVIDERS: PCP Internal Medicine; Referring Provider Internal Medicine; Visit Provider Internal Medicine
DX: I65.23 Occlusion and stenosis of bilateral carotid arteries (principal)
CPT/HCPCS: 93880

== ENCOUNTER 2025-01-23 12:17 | Outpatient (CLI) | payer MEDICARE, OTHER, SELFPAY ==
[2025-01-23 14:10] LABS: Mucous, Urine 0 SEEN /hpf (<or=2+); Red Blood Cells-Urine 0 SEEN /hpf (0-5); Squamous Epithelial Cells - UA 0 SEEN /hpf (0-5)
[2025-01-23 14:15] LABS: Hematocrit 42.4 % (40-54); Hemoglobin 13.9 g/dL (13.0-16.5); Immature Granulocytes Count 0.020 X10^3/uL (0.0-0.0); Mean Corp Hgb Conc 32.8 g/dL (32-36); Mean Corpuscular Volume 96.1 fL (80-94); Mean Platelet Vol. 9.3 fl (6.2-12.0); NRBC Flagged by Analyzer 0 % (0-5); Platelet Count 304 K/mm3 (150-450); RBC Distribution Width CV 11.9 % (11.6-14.6); RBC Distribution Width SD 41.4 fl (35.1-43.9); Red Blood Count 4.41 M/mm3 (4.6-6.2); White Blood Count 7.2 K/mm3 (4.4-11.0)
[2025-01-23 14:18] LABS: Color, Urine Yellow (Yellow); Glucose, Dipstick Normal (Normal); Ketone-Dipstick Negative (Negative); Leukocyte Esterase-Dipstick Negative /ul (Negative); Nitrite-Dipstick Negative (Negative); Occult Blood-Urine Negative /ul (Negative); Protein-Dipstick 15 mg/dl (Negative); Specific Gravity, Urine 1.020 (1.002-1.030); Urine Bilirubin Dipstick Negative (Negative)
[2025-01-23 14:46] LABS: Creatinine, Urine (random) 129.00 mg/dL (39.00-259.00); Microalbumin,Random Urine 20.8 mg/L (<20 mg/L)
[2025-01-23 14:47] LABS: AST(SGOT) 19 U/L (<=37); Alanine Aminotransfer ALT/SGPT 25 U/L (<=46); Albumin, Serum 4.3 g/dL (3.4-4.8); Alkaline Phosphatase 80 U/L (40-129); Anion Gap 12 (5-15); BUN 27 mg/dL (4-19); BUN/Creat Ratio 22.3 RATIO (10-20); Calcium,Total 9.6 mg/dL (7.6-11.0); Carbon Dioxide 21.5 mmol/L (21.0-32.0); Chloride 103 mmol/L (98-108); Globulin 3.1 g/dL (2.2-4.2); Glucose 95 mg/dL (70-99); Potassium 4.6 mmol/L (3.3-5.1)
[2025-01-27 15:08] LABS: PSA, Total 1.6 ng/mL (0.0-4.0)
== END 2025-01-23 23:59 | disposition home or self-care (01) ==
LOC: LABSPEC 12:19
PROVIDERS: PCP Internal Medicine; Referring Provider Internal Medicine; Visit Provider Internal Medicine
DX: Z12.5 Encounter for screening for malignant neoplasm of prostate (principal); R73.09 Other abnormal glucose
CPT/HCPCS: 80053; 81001; 82043; 82570; 84153; 85025